=== PATIENT | female | born 1935 | race Caucasian/White ===

== ENCOUNTER 2018-08-12 10:42 | Inpatient (IN) | payer MEDICARE, OTHER ==
[~2018-08-12] VITALS: Ht 162.6 cm; Wt 44.6 kg
[~2018-08-12 10:42] MED LIST: ASPIR 8181 MG PO; AZITHROMYCIN500 MG PO; BACITRACIN1 PKT TOP; CALCIUM600 MG PO; CARVEDILOL12.5 MG PO; CHLORTHALIDONE25 MG PO; ESCITALOPRAM OX10 MG PO; I-CAPS WITH LU1 EACH PO; LEVAQUIN500 MG PO; LEXAPRO20 MG PO; LISINOPRIL20 MG PO; MULTIVITAMINS1 EAC7 PO; NICORETTE4 M1 BUCCAL; NICOTINE PATCH1 EAC1 TD; NORCO 10-325 T1 EACH PO; NORCO 5-325 TA1 EACH PO; ONDANSETRON ODT4 MG SL; PANTOPRAZOLE SO40 MG PO; PREDNISONE10 MG PO; PROMETHAZINE HC25 M1 PO; TAMOXIFEN CITRA10 MG PO; TAMOXIFEN CITRA20 MG PO; TRAZODONE HCL50 MG PO; VITAMIN D32000 UNIT PO
--- NOTE | 2018-08-12 15:22 | NUR ---
PATIENT ADMITTED TO ROOM 111 FROM THE ER. REPORT RECEIVED FROM ER NURSE THONG. VITALS TAKEN UPON ARRIVAL AND PATIENT REMAINS ALERT AND ORIENTED AT THIS TIME. DOCTOR ABELARDO CALLED AND NOTIFIED OF ELEVATED LACTIC ACID LEVEL 3.3 AND ASSESSMENT DONE. SON IN THE ROOM TO HELP WITH QUESTIONS. PATIENT ORIENTED TO THE FLOOR.
--- NOTE | 2018-08-12 15:41 | NUR ---
NG TUBE PLACED AT THIS TIME, XRAY CALLED TO VERIFY PLACEMENT.
--- NOTE | 2018-08-12 15:58 | NUR ---
XRAY DONE TO VERIFY PLACEMENT OF NG TUBE, NG TO SUCTION AT THIS TIME.
[2018-08-12] MEDS ORDERED: LISINOPRIL10 MG PO (16:29)
[2018-08-12] MEDS ORDERED: NORCO 5-325 TA1 EACH PO (16:31)
[2018-08-12] MEDS ORDERED: FERROUS SULFAT325 MG PO (16:32)
--- NOTE | 2018-08-12 18:03 | NUR ---
PATIENT STAND BY ASSIST UP TO THE BATHROOM, VOIDED CLEAR YELLOW URINE MISSING THE HAT. PATIENT IS FAIRLY STEADY ON HER FEET AND REQUIRED ONLY ASSISTANCE WITH HER IV POLE. I AND O COMPLETE AND NEW BAG OF IV FLUIDS HUNG.
--- NOTE | 2018-08-12 18:22 | NUR ---
THIS PATIENT WAS ADMITTED TO THE FLOOR AFTER COMING TO THE ER FOR NAUSEA FOR THE PAST 24 HOURS. AN NG TUBE WAS PLACED AND BROWN COLORED BILE WAS EMPTIED FROM THE NG TUBE. PATIENT IS ALERT AND ORIENTED AT THIS TIME AND IS STEADY ON HER FEET. PATIENTS LACTIC ACID LEVEL WAS ELEVATED AT 3.3 AND WILL BE RECHECKED IN THE AM.
--- NOTE | 2018-08-12 18:39 | NUR ---
PATIENT'S HR IS ELEVATED AT 130'S PER TELEMETRY, DOCTOR ABELARDO CALLED AND BOLUS OF LR 500MLS STARTED AT THIS TIME. SCD'S REMAIN ON AND HOB ELEVATED PER DOCTOR REQUEST
--- NOTE | 2018-08-12 19:10 | NUR ---
CHARGE NURSE REPORT RECEIVED FROM SALOME. WILL IN BED, VISITING WITH A MALE VISITOR.
--- NOTE | 2018-08-12 22:00 | NUR ---
PT ASSESSMENT COMPLETE. PT REPORTS PAIN TO RLQ. PRN DILAUDID ADMINISTERED. PT WITH A BRIEF EPISODE OF NAUSEA, STATES THAT IT PASSED QUICKLY. PT DENIES SOB. NG TUBE IN PLACE TO LIWS, BROWN DRAINAGE PRESENT IN CANISTER. BT'S ACTIVE. PT CONTINUES TO DRINK ICE WATER. STATES THAT HER THROAT IS IRRITATED. PT ASSISTED TO THE BATHROOM WITH SBA AND BACK TO BED. PT TOLERATED WELL. PT DENIES FURTHER NEEDS AT THIS TIME. CALL LIGHT WITHIN REACH. ROOM IN VIEW OF RN STATION.
--- NOTE | 2018-08-13 01:39 | NUR ---
PT RESTING IN BED WITH EYES CLOSED, WAKES EASILY TO NAME. PT ASSESSMENT COMPLETE. PT DENIES PAIN, NAUSEA, OR SOB. BT'S ACTIVE. PT CONTINUES TO REPORT TENDERNESS UPON ABD PALPATION, ESPECIALLY TO RLQ. NG TUBE TO LIWS WITH BROWN DRAINAGE. PT DENIES NEEDS AT THIS TIME. CALL LIGHT IN REACH, ROOM IN VIEW OF RN STATION.
--- NOTE | 2018-08-13 03:12 | NUR ---
PT ASSISTED TO THE BATHROOM AND BACK TO BED WITH 1 PA. PT BECOMES NAUSEATED UPON SITTING UP. STATES THAT IT PASSES QUICKLY. PT DENIES FURTHER NEEDS. CALL LIGHT WITHIN REACH. ROOM IN VIEW OF RN STATION.
--- NOTE | 2018-08-13 05:46 | NUR ---
PT ASSESSMENT COMPLETE. PT STATES PAIN WELL CONTROLLED. REPORTS OCCASIONAL NAUSEA, DENIES SOB. PT STATES SHE IS "NOT FEELING SPUNKY" THIS MORNING. BT'S ACTIVE. ABD TENDER TO PALPATION, ALOK TO RLQ. NG TUBE TO LIWS, MINIMAL DRAINAGE IN THE LAST 4 HOURS. SMALL AMOUNT OF CLEAR DRAINAGE IN NG TUBING. PT DENIES FURTHER NEEDS AT THIS TIME. CALL LIGHT WITHIN REACH.
--- NOTE | 2018-08-13 05:51 | NUR ---
PT SLEPT OFF AND ON THIS SHIFT. DILAUDID X 1 FOR PAIN AND SLEEP. PT ALERT AND ORIENTED. NG TUBE TO LIWS WITH ~ 600ML DRAINAGE THIS SHIFT, SLOWING DOWN THIS AM. RLQ TENDER TO PALPATION. NAUSEA OFF AND ON THROUGHOUT THE NIGHT, PT STATES NAUSEA WORSE WHEN SHE SITS UP. 1 PA. D5LR @ 125. UO QS.
--- NOTE | 2018-08-13 08:04 | NUR ---
PT AWAKE, ALERT AND ORIENTED X3. PT RECEIVED MORPHINE IVP FOR REPORTS OF PAIN A SHORT TIME AGO; PAIN IMPROVED AT THIS TIME. PT DENIES NEED TO VOID. PERSONA SUPPLIES AND CALL LIGHT WITHIN REACH.
--- NOTE | 2018-08-13 08:24 | NUR ---
PATIENT IN BED RESTING. FRESH WATER GIVEN. CALL LIGHT IN REACH. NO FURTHER NEEDS AT THIS TIME.
--- NOTE | 2018-08-13 09:06 | HP ---
[facility] [address], [place] [address] Signed ADMISSION DATE: 08/12/2018 REASON FOR ADMISSION: Small bowel obstruction, dilated gallbladder. HISTORY OF PRESENT ILLNESS: This 82-year-old white woman is well known to me from the past. I have treated her breast cancer number of years ago. She is an impressive and relentless smoker of cigarettes, previously two packs a day, now down to merely 1/2 pack of cigarettes a day. She has a long-standing history of vasculopathy including an impressive thoracic aortic aneurysm with a saccular configuration, history of fem-fem bypass and wound healing issues following surgery in the past. She presents to the emergency room today where she was evaluated by Dr. Colón with diffuse abdominal pain and bloating. A CT scan was performed confirming small-bowel obstruction. Notably, she has had a small bowel resection in the distant past by Dr. Shankar Ramirez for Crohn's disease. She has been careful in her dietary habits to avoid large boluses of fiber so as to avoid obstructive problems. She is admitted for further evaluation and care on the basis of her small bowel obstruction. It is notable that her white count is elevated to 17.6 and a lactic acid level is 3.3. Notably, her troponin is less than 0.01. Review of her medical record shows that she was admitted in November of 2016 with chief complaint of nausea and vomiting. At that time, found to have an avulsion fracture of the left greater trochanter. PAST MEDICAL HISTORY: Her underlying medical issues include hypertension, COPD, chronic respiratory failure with hypoxia, history of thoracic aortic aneurysm, history of antral ulcer of stomach, presented with blood loss anemia in February of [address] Mooney, as well as Crohn's disease with history of right-sided colectomy. She has history of breast cancer and bilateral mastectomy. History of left parotidectomy and mood disorder. SOCIAL HISTORY: She has two adult sons in the [facility] and a daughter in [place], [place]. Electronically Signed By: DOMI ZHOU MD 08/13/18 0906 PATIENT NAME: YNES VELASQUEZ HISTORY AND PHYSICAL DATE OF : 35 REPORT #: [id number] PHYSICIAN: DOMI ZHOU MD PCP: NATALIYA MG MD REPORT IS CONFIDENTIAL AND NOT TO BE RELEASED WITHOUT AUTHORIZATION [facility] [address], [place] [address] Signed She is a . Her of smoking-related causes. ALLERGIES: She has allergies to penicillin and sulfa medication. MEDICATIONS: At admission include iron sulfate tablets 325 mg p.o. daily, [place] 5/325 as needed for pain, lisinopril 10 mg p.o. b.i.d., a multivitamin, and trazodone 1 p.o. at bedtime. She also takes calcium supplement, vitamin D3, and a proprietary antioxidant, omega-3 preparation. She also takes a multivitamin daily. REVIEW OF SYSTEMS: She denies any shortness of breath or chest pain at this time. She has no significant abdominal pain currently. PHYSICAL EXAMINATION: GENERAL: She is alert and oriented. Does not look toxic surprisingly. HEENT: Trachea is midline. She has no tachypnea. She has several missing teeth. CHEST: Shows diminished breath sounds bilaterally. HEART: Appears regular. ABDOMEN: Without muscle tone. There was abdominal distention, but no tenderness. Note is made of a fem-fem bypass graft, which is far higher than a typical position, indeed [facility] between the pubic symphysis and the umbilicus itself. There is a long midline incision. There is no sign of hernia. EXTREMITIES: Show clubbing of the fingernails. LABORATORY STUDIES: Show white count of 17.6, hematocrit 46, platelets 549,000. Chem profile is reasonably normal. Bicarb is 22, creatinine 1.77, glucose 133, lactic acid 3.3 as mentioned, bilirubin 0.5, troponin 0.01, globulin 4.0, albumin 44.3. She is negative for type A influenza. CT scan is reviewed in detail. Additionally, her chest x-ray is reviewed, which shows no evidence of infiltrate. Nasogastric tube was placed, which shows good decompression of the stomach. It is in good position. A CT scan was reviewed showing difficulty in determining transition point for bowel obstruction. There are benny noted in the low pelvis related to prior bowel resection. There is apparent prior right colectomy. There is a large calcific lesion in the right mid abdomen, not consistent with gallstone, ileus appearance that I can tell. Reviewed these films with radiologist, Dr. Díaz. There are dilated loops of small bowel, most dominantly in the pelvis. The liver appears normal. The gallbladder is markedly distended, but not inflamed particularly. There are no stones that I can see. The thoracic aorta has an impressive saccular type aneurysm at the arch and distalward as well. A femoral-femoral bypass graft is noted on the CT scan and well positioned. Electronically Signed By: DOMI ZHOU MD 08/13/18 0906 PATIENT NAME: YNES VELASQUEZ HISTORY AND PHYSICAL DATE OF : 35 REPORT #: [id number] PHYSICIAN: DOMI ZHOU MD PCP: NATALIYA MG MD REPORT IS CONFIDENTIAL AND NOT TO BE RELEASED WITHOUT AUTHORIZATION [facility] [address] [facility] [place] [place] [address] Signed ASSESSMENT: The patient has appearance of small bowel obstruction and elevated white count and elevated lactate level. Her clinical appearance is far better than her numbers would reveal. She is known to have very advanced chronic obstructive pulmonary disease and vasculopathy, no doubt in part related to her smoking history. With her prior history of Crohn's disease and prior laparotomies and partial enteric resections, the possibility of adhesion or adhesion-related obstruction is most likely. Continued IV fluids would be appropriate. Monitoring of her lactic acid levels for response resuscitation is appropriate. We are hopeful that she will not require an operative intervention, but if operation is undertaken, then cholecystectomy would be additionally performed given its dilated appearance. It is unlikely that she has acute cholecystitis and secondary ileus, but the gallbladder clearly is quite abnormal at least from its perspective of being dilated. I have discussed all this with the patient who clearly understands. Her sons have come and gone today and visiting. We will allow some liquids for comfort as she requests. MD CITLALI Medley/ALFRED /[id number] cc: Nataliya Mg MD Copies: NATALIYA MG MD ~ Electronically Signed By: DOMI ZHOU MD 08/13/18 0906 PATIENT NAME: YNES VELASQUEZ HISTORY AND PHYSICAL DATE OF : 35 REPORT #: [id number] PHYSICIAN: DOMI ZHOU MD PCP: NATALIYA MG MD REPORT IS CONFIDENTIAL AND NOT TO BE RELEASED WITHOUT AUTHORIZATION
--- NOTE | 2018-08-13 10:05 | NUR ---
PATIENT IN BED RESTING WITH EYES CLOSED. CALL LIGHT IN REACH. NO FURTHER NEEDS AT THIS TIME.
--- NOTE | 2018-08-13 11:36 | NUR ---
PT RESTING IN BED. PT REMAINS ON RA, RESP EVEN ADN NON LABORED. NG TO RIGHT NARES. LIS.; TUBE IS PATENT AND DRAIN APPROP. PERSONAL SUPPLIES WITHIN REACH OF PT. NO NEEDS AT THIS TIME.
--- NOTE | 2018-08-13 12:18 | NUR ---
ATTEMPTED TO GET PT OUT OF BED FOR A SMALL WALK. PT VERBALIZED SHE IS NOT FEELING "WELL ENOUGH" AT THIS TIME TO DO THIS. ENCOURGED PT TO CALL STAFF IS OR WHEN SHE FEELS WELL ENOUGH TO WALK. PT TOLERATING AMBULATION TO BR AND BACK TO BED FAIR. PT STATES SHE GETS A BIT NAUSEATED WITH POSITION CHANGES.
--- NOTE | 2018-08-13 13:17 | NUR ---
PATIENT IN BED RESTING WITH EYES CLOSED. CALL LIGHT IN REACH. NO FURTHER NEEDS AT THIS TIME.
--- NOTE | 2018-08-13 13:38 | EKG ---
[facility] [address] [facility] [place], [place] [address] Signed Sinus tachycardia Biatrial enlargement Abnormal ECG When compared with ECG of 08-MAR-2018 00:09, T wave inversion no longer evident in Anterior leads Confirmed by BRENDA KING DO ([id number]) on 08/13/2018 1:38:28 PM Electronically Signed By: BRENDA KING DO 08/13/18 1338 PATIENT NAME: YNES VELASQUEZ THAD Electrocardiogram DATE OF : 35 PHYSICIAN: BRENDA KING DO REPORT #: [id number] REPORT IS CONFIDENTIAL AND NOT TO BE RELEASED WITHOUT AUTHORIZATION
--- NOTE | 2018-08-13 15:57 | NUR ---
PT ASSISTED TO BATHROOM SBA. NGT TO LIWS. PT REQUESTING THROAT LOZENGE, PROVIDED. PT DENIES OTHER NEEDS AT THIS TIME.
--- NOTE | 2018-08-13 17:24 | NUR ---
PATIENT IN BED WATCHING TV. BP HIGH, RN NOTIFIED. CALL LIGHT IN REACH. NO FURTHER NEEDS AT THIS TIME.
--- NOTE | 2018-08-13 17:45 | NUR ---
DR. ZHOU NOTIFIED REGARDING ELEVATED BP AND NEW ONSET OF SUSTAINED ELEVATED HEART RATE IN 120/130'S AT REST.
--- NOTE | 2018-08-13 18:17 | NUR ---
PT ON 2L OXYGEN. INTERMITTENT ABD PAIN AND NAUSEA. DECLINED MEDICATION FOR THIS. NG LIS. 1PA STANDBY TO BR. SIPS WATER AND ICE CHIPS FOR COMFORT. HEART RATE NST 120/130'S DR. ZHOU AWARE; PT ASYMPTOMATIC.
--- NOTE | 2018-08-13 18:59 | NUR ---
DR. JOHN AWARE OF CONSULT REQUESTED BY DR. ZHOU. ORDER PLACED.
--- NOTE | 2018-08-13 19:01 | NUR ---
RECEIVED REPORT FROM CELINE ESCALERA. WHITEBOARD UPDATED. NO REQUESTS AT THIS TIME.
--- NOTE | 2018-08-13 19:05 | NUR ---
CHARGE NURSE REPORT RECEIVED, PT IN BED AT THIS TIME.
--- NOTE | 2018-08-13 20:32 | NUR ---
ASSESSMENT AND MEDICATIONS DUE. ASSESSMENT DONE. AMBULATED TO TOILET. REPORTED NAUSEA, NO EMESIS. NG TUBE ON LIS. DENIES PAIN. MEDICATIONS GIVEN (SEE MAR).
--- NOTE | 2018-08-14 00:02 | NUR ---
MEDICATIONS DUE. BP 192/85 (108), REPEATED MANUALY WITH SAME RESULTS. METOPROLOL GIVEN (SEE MAR). MAGNESIUM INFUSING (SEE MAR).
--- NOTE | 2018-08-14 00:20 | NUR ---
BLOOD PRESSURE REPEATED 168/102. PULSE OF 82. pt RESTING.
--- NOTE | 2018-08-14 00:22 | NUR ---
V/S AND I&O DONE AND CHARTED. NO OTHER NEEDS AT THIS TIME. CALL LIGHT AND BEDSIDE TABLE IN REACH.
--- NOTE | 2018-08-14 02:00 | NUR ---
ASSESSMENT DONE. NO CHANGES FROM PRIOR ASSESSMENT. CALL LIGHT WITHIN REACH.
--- NOTE | 2018-08-14 05:39 | NUR ---
MEDICATION DUE. pt ALERT AND AWAKE. VSS. MEDICATION GIVEN (SEE MAR). NEW CANISTER FOR NG TUBE. AMBULATED TO TOILET AND BACK. REFUSED SCDS AT THIS TIME. CALL LIGHT WITHIN REACH.
--- NOTE | 2018-08-14 06:21 | NUR ---
pt SLEPT ON AND OFF. BP HIGH, IV MEDS GIVEN (SEE MAR). BP IMPROVED. NG TUBE TO LIS. TELE 9. SBA. IV ABX, IVF INFUSING. ON 2 L O2 VIA NC. SIPS WATER AND ICE CHIPS FOR COMFORT. DR JOHN CONSULTING. USES CALL LIGHT APPROPRIATELY.
--- NOTE | 2018-08-14 07:00 | NUR ---
Pt alert and oriented to person, place, time. Pt sitting up in bed. Pt responds to questions and answers appropriately. Pt in good spirits evidenced by humor stating "i have the cute nurse today, things are looking up". Call light in reach. Pt stated no further needs at this time.
--- NOTE | 2018-08-14 09:00 | NUR ---
PT A&OX3. NG TO LIS TO RIGHT NARE. NG PATENT, LIGHT BROWN OUTPUT NOTED IN CANISTER. PT REPORTS BRIEF EPISODES OF INTERMITTENT NAUSEA AND RLQ ABD PAIN. PT DECLINING NAUSEA AND PAIN MEDICATION. PERSONAL SUPPLIES AND CALL LIGHT WITHIN REACH. NO NEEDS AT THIS TIME.
--- NOTE | 2018-08-14 09:20 | NUR ---
NG tube securement device loose at this time. Mastisol liquid adhesive applied to nose to secure suction tube attachment device. NG tube then marked with blue sharpy at inlet of the nose for visualization of placement.
--- NOTE | 2018-08-14 09:25 | NUR ---
Pt ambulated to the bathroom. Gait steady. Stand by assist with SN. Pt returned to bed and complains of nausea. After one minute of laying in bed, pt states she no longer feels nauseated. Call light left in reach. Pt states no further needs at this time. Son in room with pt at this time.
--- NOTE | 2018-08-14 10:52 | NUR ---
PATIENT SEEN FROM NURSES STATION STANDING AT BEDSIDE TRYING TO UNTANGLE IV, TELE, AND NG TUBES AND CORDS. THIS CHAIN TESTING MACHINE OPERATOR ASSISTED PATIENT TO SIT BACK IN BED AND LAY BACK DOWN. PATIENT BELONGINGS ON BEDSIDE TABLE. CALL LIGHT IN REACH, PATIENT ENCOURAGED TO CALL WHEN NEEDING HELP. PATIENT STATES SHE WAS "TRYING TO CLOSE THE CURTAIN". BED ALARM ON. PATIENT VISIBLE FROM NURSES STATION.
--- NOTE | 2018-08-14 11:00 | NUR ---
New suction tube attachment device was placed on pt's nose and attached to NG tube. Pt stated no pain. Pt tolerated well. No further concerns at this time. Visitor in room with pt.
--- NOTE | 2018-08-14 14:50 | NUR ---
TALKED TO DR ZHOU REGARDING INCREASED BP. HE ORDERED 5MG IV LABATOLOL ONCE.
--- NOTE | 2018-08-14 15:55 | NUR ---
PT IS VERY ADAMATE THAT SHE WILL NOT GO TO A SNF, HAVE HOME HEALTH COME TO HER HOUSE, OR GO TO OP PT AND/OR OT. PT REFUSING ALL AND ANY OF THESE, WE DISCUSSED HOW DECONDITIONED SHE CAN BECOME MAKING IT UNSAFE FOR HER TO GO HOME AND SHE STATES THAT HER DAUGHTER THAT LIVES IN [place] WILL COME AND CARE FOR HER IF NEED BE.
--- NOTE | 2018-08-14 16:35 | NUR ---
CALLED DR ZHOU FOR PT DRY HEAVING. STILL HAS ONE MORE IMAGE TO GO ON SMALL BOWEL FOLLOW THROUGH. HE ORDERED 12.5 MG PHENEGREN [id number]
--- NOTE | 2018-08-14 16:49 | NUR ---
Pt in bed nauseated. Admin phenergan 12.5mg IVP via pump. Pt remains on 2l oxygen pers nc, sat level 95%. Family in room visiting. Personal supplies and call light within reach. No needs at this time.
--- NOTE | 2018-08-14 17:21 | NUR ---
BLOOD PRESSURE CONTINUES TO BE ELVEVATED; DR. JOHN AWARE; NEW ORDER FOR VASOTEC 0.625MG IVP ADMIN PER DOC ORDER. PT NAUSEA SUBSIDING; WAS GIVEN PHENERGAN A SHORT TIME AGO FOR THIS. PENDING DI RESULTS FOR BOWEL STUDY; PER DI REQUEST LEAVE NG CLAMPED UNTIL THEY NOTIFY US TO HOOK IT BACK TO SUCTION. PT'S NG CLAMPED AT THIS TIME. PT REPORTS STOMACH PAIN IS IMPROVED AT THIS TIME. PERSONAL SUPPLIES AND CALL LIGHT WITHIN REACH OF PT. BED ALARM INTACT. PT REMAINS ON 2 L OXYGEN, 02 SAT LEVEL OF 93%. PT CLOSE TO RN STATION FOR FREQUENT MONITORING. CALL LIGHT WIHIN REACH.
--- NOTE | 2018-08-14 18:23 | NUR ---
PT CONFUSED. NG TO RIGHT NARE; LIS. HYPOACTIVE BT, LBM 08/11/18. BOWEL STUDY IN PROGRESS. 2L OXYGEN NC, SAT LEVEL MID 90'S. 1-2P ASSIST TO BR. D5LR@125 WITH ONE TIME BOLUS OF KCL HANGING. BED ALARM INTACT.
--- NOTE | 2018-08-14 20:15 | NUR ---
MEDICATION DUE. pt IN SUPINE POSITION, WATCHING TV. BED ALARM ON. BP TAKEN. MEDICATION GIVEN BP REPEATED. (SEE MAR). NO REQUESTS FROM pt.
--- NOTE | 2018-08-14 21:14 | NUR ---
ASSESSMENT AND MEDICATIONS DUE. pt ORIENTED TO PERSON AND DATE BUT NOT TO PLACE. STATED "I'M AT HOME". ASSESSMENT DONE. MEDICATIONS GIVEN (SEE MAR). BED ALARM ON. DOOR AND CURTAIN OPEN TO NURSES STATION.
--- NOTE | 2018-08-14 21:59 | NUR ---
PT TRYING TO USE THE TELEBOX TO GET HELP. ASSISTED UP TO THE BATHROOM, UNSTEADY ON FEET, REQUIRED STEADING. BACK TO BED, NG TO LIS, IV INFUSING, OXYGEN IN PLACE, AND CALL LIGHT WITHIN REACH.
--- NOTE | 2018-08-15 00:52 | NUR ---
ROUNDED ON pt. RESTING WITH EYES CLOSED, RESPIRATIONS REGULAR, RATE = 18. HR 70. CALL LIGHT WITHIN REACH. BED ALARM ON.
--- NOTE | 2018-08-15 02:36 | NUR ---
MEDICATIONS DUE. FOUND pt WITH NG TUBE OUT. BLOOD PRESSURE TAKEN. MEDICATIONS ADMINISTERED (SEE MAR). pt ALERT AND ORIENTED. WHEN ASKED ABOUT THE NG TUBE STATED "IT'S GONE THANK GOODNESS". CURTAIN OPEN TO THE NURSES STATION. BED ALARM ON.
--- NOTE | 2018-08-15 02:49 | NUR ---
CALLED DR. ZHOU WHO REQUESTED A NEW TUBE A PLACED, AND XRAY BE USED TO VERIFY PLACEMENT. ORDERS ENTERED. NEW NG TUBE PLACED WITH HELP FROM CELINE AJ. pt VOMITTED DURING PLACEMENT. XRAY CALLED TO VERIFY PLACEMENT. XRAY DONE. WARM BLANKETS PROVIDED. CURTAIN AND DOOR OPEN TO THE NURSES STATION. pt RESTING.
--- NOTE | 2018-08-15 04:23 | NUR ---
RADIOLOGY REPORT RECEIVED, NG PLACED APPROPRIATELY. ATTACHED TO SUCTION LOW INTERMITTENT. 2L O2 VIA NC. HOB 45 DEGREES. NO REQUESTS AT THIS TIME. BED ALARM ON. CURTAIN OPEN TO NURSES STATION.
--- NOTE | 2018-08-15 05:21 | NUR ---
pt CONFUSED AT VARIOUS PROBLEMS, ORIENTED TO SELF AND SITUATION. PULLED NG TUBE, NEW TUBE PLACED. BP CONTROLLED WITH IV MEDS. IVF INFUSING. BED ALARM ON. TELE 9.
--- NOTE | 2018-08-15 07:58 | NUR ---
PATIENT SITTING UP IN BED. PATIENT FACE AND HANDS CLEANED. CALL LIGHT WITHIN REACH. NO OTHER NEEDS AT THIS TIME
--- NOTE | 2018-08-15 08:00 | NUR ---
RECEIVED REPORT AT 0700, FOUND PT AWAKE IN BED WITH SON AT BEDSIDE. PT HAD NO NEEDS OR CONCERNS AT THAT TIME.
--- NOTE | 2018-08-15 10:00 | NUR ---
BP IS INCREASED SOME AT THIS TIME. MORNING BP MEDS HAVE BEEN GIVEN. BLACK IS CLEAR, LLL IS DIMINISHED. ALL RIGHT LOBES ARE DIMINISHED. ABD SOUNDS ARE PRESENT WITH NO DISTENTION NOTED BY PT. FEMORAL BYPASS IS WDL. PT DENIES PAIN. NG TUBE AT L/I/S, FLUSHED WITH 30ML OF TAP WATER. 200ML OUT OF NG TUBE BETWEEN 3129-4415. PT WALKED IN HALLWAY WITH PHYS. THERAPY. NO NEW IMMEDIATE CONCERNS NOTED SO FAR.
--- NOTE | 2018-08-15 10:10 | NUR ---
PATIENT RESTING IN BED. VITAL SIGNS AND I&O DONE. PATIENT DID NOT VOID DURING THIS PERIOD EVEN WHEN SHE WAS ENCOURAGED TO USE THE TOILET. RN NOTIFIED. CALL LIGHT WITHIN REACH. BED ALARM ON. NO OTHER NEEDS AT THIS TIME.
--- NOTE | 2018-08-15 11:32 | NUR ---
PATIENT IN BED. PATIENT'S BODY CLEANED WITH SURGICAL WIPES BEFORE SURGERY. CALL LIGHT WITHIN REACH. BED ALARM ON. NO OTHER NEEDS AT THIS TIME.
--- NOTE | 2018-08-15 12:00 | NUR ---
PT IS READY FOR OR. NO NEW CONCERNS NOTED AT THIS TIME.
--- NOTE | 2018-08-15 13:42 | NUR ---
PATIENT IN BED WATCHING TV. VITAL SIGNS AND I&O DONE. CALL LIGHT WITHIN REACH. NO OTHER NEEDS AT THIS TIME
--- NOTE | 2018-08-15 14:00 | NUR ---
PT IS STILL WAITING FOR OR. NO NEW CONCERNS NOTED SO FAR.
--- NOTE | 2018-08-15 15:00 | NUR ---
PT JUST PULLED HER NG TUBE OUT. MD ZHOU WAS CALLED BUT I WAS NOT ABLE TO REACH HIM.
--- NOTE | 2018-08-15 15:20 | NUR ---
OR CREW ON THE WAY. MD ZHOU IS AWARE THAT PT PULLED HER NG TUBE. NO ORDERS WERE GIVEN. PT TO GO TO ROOM 129 AFTER SX.
--- NOTE | 2018-08-15 22:30 | NUR ---
08/15/182229 JuanAgnes Pola 2158: PT ARRIVES TO CCU RM 129 AWAKE, BUT DISORIENTED. PT ON 6L O2 VIA MASK, SATS 100%. RESP EVEN AND UNLABORED. PT MOVES AROUND IN BED FREQUENTLY, GRASPING ANTHING IN REACH. TWO RN'S HOLD PT'S HAND TO OBTAIN VS. 2200: SCD'S APPLIED TO PT. PT CONT TO ASK FOR FAMILY MEMBERS AND IS UNABLE TO ANSWER PAIN QUESTIONS. PT CONT TO SAT 100% ON 6L O2 VIA MASK WITH EVEN AND UNLABORED RESP.
--- NOTE | 2018-08-15 22:50 | NUR ---
PATIENT TO ROOM 129 FROM OR. RECEIVED REPORT FROM BRUSH OR BROOM CUTTER CHRISTIE AND RN DARREN. PATIENT IS RESTFUL WITH EYES CLOSED, BREATHING IS EVEN AND UNLABORED, VITALS WNL, SPOS 98% ON ROOM AIR, FLACC SCORE OF 0. ABD DRESSINGS INTACT, LEXI DRAIN PUTTING OUT SANGUINOUS FLUID, DR. ZHOU IS AWARE, DOES NOT WISH TO BE NOTIFIED REGARDING LEXI OUTPUT OVER NIGHT. G TUBE PRESENT DRAIN TO GRAVITY, NO OUTPUT NOTED. THIS RN REMAINS AT BEDSIDE.
--- NOTE | 2018-08-16 00:39 | NUR ---
PATIENT REPORTS NAUSEA, PRN PROMETHAZINE GIVEN. IV SITE PATENT, FLUSHING WELL. PATIENT DENIES FURTHER NEEDS. FLACC SCORE OF 0. RESTFUL, RASS SCORE -1. LEXI DRAIN CONTINUING TO DRAIN SANGUINOUS FLUID, NO OUTPUT FROM G TUBE. BREATHING IS EVEN AND UNLABORED, VITALS WNL. CALL LIGHT WITHIN REACH.
--- NOTE | 2018-08-16 01:00 | NUR ---
DR. JOHN TO BEDSIDE TO EVALUATE PATIENT. UPDATED HIM REGARDING PATIENT'S CONDITION, VITALS WNL, NOTIFIED HIM THAT AFTER LABETALOL ADMINISTRATION, PATIENT'S BLOOD PRESSURE WAS DOWN TO 116/50 (62). ENALAPRILAT WAS HELD AND DC'D. NO OTHER ORDERS AT THIS TIME.
--- NOTE | 2018-08-16 03:09 | NUR ---
PATIENT IS RESTFUL WITH EYES CLOSED, BREATHING IS EVEN AND UNLABORED. O2 SATURATION IS 98% ON ROOM AIR. FLACC SCORE OF 0. LEXI DRAIN NOW HAS SEROSANGUINOUS OUTPUT. [place]O INTACT, DRAINING CONCENTRATED URINE, G TUBE HAS SMALL AMOUNT OF GREEN LIQUID AFTER SMALL AMOUNT OF PO INTAKE WHICH PATIENT TOLERATED WELL. CALL LIGHT WITHIN REACH.
--- NOTE | 2018-08-16 04:00 | NUR ---
PATIENT RESTFUL IN BED WITH EYES CLOSED, BREATHING IS EVEN AND UNLABORED, SPO2 99% ON ROOM AIR. PATIENT AWAKENS EASILY TO VOICE, DISORIENTED TO DATE, AWARE SHE IS IN HOSPITAL AND SITUATION. VITALS WNL, PERIPHERAL PULSES WELL FELT. GASTROSTOMY TUBE CONTINUES TO PUT OUT SMALL AMOUNTS OF GREEN LIQUID, LEXI HAS SEROSANGUINOUS OUTPUT, LESS OUTPUT THAN BEFORE NOTED (SEE I&O). DRESSINGS TO ABD REMAIN INTACT, BOWEL TONES ARE HYPOACTIVE, NO APPARENT DISTENTION. JARAMILLO INTACT, CONTINUES TO PUT OUT CONCENTRATED URINE. IVF INFUSING PER ORDER, IVs REMAIN INTACT. CALL LIGHT WITHIN REACH.
--- NOTE | 2018-08-16 06:00 | NUR ---
PATIENT IS RESTFUL IN BED WITH EYES CLOSED, BREATHING IS EVEN AND UNLABORED. VITALS WNL, IV LABETALOL HELD DUE TO DIASTOLIC OF 48 AND MAP OF 69. FLACC SCORE OF 0, RASS -1. CALL LIGHT WITHIN REACH.
--- NOTE | 2018-08-16 08:08 | NUR ---
Son in room with patient at 0745. Patient alert and oriented, responding to my questions well. patient laying in bed with HOB up at about 45 degrees.
--- NOTE | 2018-08-16 08:36 | NUR ---
LEFT FOREARM IV SL'ED, WAS NOT CHARTED ON START OF MY SHIFT. VERBAL REPORT FROM STAFFING RECRUITER STATES WAS PUT IN PLACE DURING TIME IN OR YESTERDAY.
--- NOTE | 2018-08-16 10:06 | NUR ---
DR ZHOU IN TO SEE PATIENT, WINDOW SHADES OPENED.
--- NOTE | 2018-08-16 10:09 | NUR ---
GRANDCHILDREN HERE TO VISIT. PATIENT STATES HAVING SOME MORE PAIN NOW IN HER ABD AREA, 09/15, PLAN TO GIVE HER SOME PAIN MEDICATIONS.
--- NOTE | 2018-08-16 10:34 | NUR ---
REMOVED SPO2 MONITOR FROM FOREHEAD AND PLACED ONE ON FINGER. READING WAS 85%, PATIENT TOOK SEVERAL DEEP BREATHES AND NOW IT IS READING 93%. GRANDCHILDREN LEAVING NOW. MORPHINE 2MG GIVEN
--- NOTE | 2018-08-16 11:11 | NUR ---
PATIENT UP TO CHAIR, BED BATH COMPLETED WITH HELP FROM PATIENT AND YUSUF BERGER. NEW LINENS APPLIED. ANOTHER SON NOW IN THE ROOM VISITING WITH PATIENT. CALL LIGHT IN REACH.
--- NOTE | 2018-08-16 12:21 | NUR ---
CONTINUES TO SIT UP IN CHAIR, HAS HAD HALF A CUP OF ICE CHIPS. G TUBE AND JARAMILLO BOTH EMPTIED. STATES PAIN STAYING ABOUT THE SAME AT 3/10 AND MOSTLY AT THE TUBE SITES.
--- NOTE | 2018-08-16 13:15 | NUR ---
THIS RN TAKING OVER PT CARE FOR THE REST OF DAY SHIFT. UPON ENTRANCE TO INTRODUCT MYSELF, PT IS UP IN CHAIR WITH FAMILY MEMBER AT HER SIDE. PT IS PLEASANT, CALM AND COOPERATIVE WITH NO C/O PAIN "UNLESS UP MOVING." PT DENIES ANY NEEDS AT THIS TIME. HER GTUBE IS DRAINING LIGHT GREEN/CLEAR OUTPUT TO GRAVITY; SMALL AMOUNT PRESENT IN BAG. RIGHT LEXI IS IN PLACE WNL; SMALL AMOUNT DRAINAGE IN BULB. JARAMILLO IN PLACE WITH BORDERLINE LOW UOP- WILL CONTINUE TO WATCH THIS I HAVE JUST ARRIVED. CALL LIGHT WITHIN REACH. FALL PRECAUTIONS IN PLACE. WILL CONTINUE TO MONITOR.
--- NOTE | 2018-08-16 14:25 | NUR ---
THIS RN AND A SECOND RN ASSISTED PT BACK TO HER BED PER HER REQUEST. SOME WEAKNESS ON HER FEET. PT STATED SOME DISCOMFORT WHILE MOVING BUT THIS DECREASED AFTER IN BED FOR A FEW MINUTES. SCD'S HAVE BEEN PLACED AND ARE ON. SHE DENIES ANY FURTHER NEEDS AT THIS TIME. CALL LIGHT WITHIN REACH. FALL PRECAUTIONS IN PLACE. WILL CONTINUE TO MONITOR.
--- NOTE | 2018-08-16 15:00 | NUR ---
PT RESTING IN BED WATCHING TV; IV ABX INITIATED. VERY PLEASANT, STATES SHE'S COMFORTABLE WITH NO REQUESTS. CALL LIGHT WITHIN REACH. FALL PRECAUTION IN PLACE. WILL CONTINUE TO MONITOR.
--- NOTE | 2018-08-16 16:08 | NUR ---
PT ASSESSMENT COMPLETED AT THIS TIME; PT RESTING IN BED WITH NO C/O PAIN, JUST SOME "SORENESS" AT HER GTUBE AND LEXI EXIT SITES. NO N/V. NO SOB. A/O X4/ ROOM AIR. CLEAR LUNGS OTHER THAN SMALL FINE CRACKLES IN RLL. DRSGS ON ABD ARE ALL C/D/I. LEXI LIGHT BROWN/SEROSANG SMALL OUTPUT. GTUBE TO GRAVITY WITH CLEAR/GREEN SMALL AMOUNT OUTPUT. JARAMILLO IN PLACE DRAINING CLEAR SARAH, BORELINE LOW UOP. PT ENCOURAGED TO COUGH AND DEEP BREATHE. SHE REMAINS NPO EXCEPT ICE CHIPS. HYPOACTIVE BOWEL SOUNDS THROUGHOUT. SCD ON AND IN PLACE. NO QUESTIONS OR CONCERNS. REMAINS VERY PLEASANT AND COOPERTIVE. CALL LIGHT WITHIN REACH. FALL PRECAUTIONS IN PLACE. WILL CONTINUE TO MONITOR.
--- NOTE | 2018-08-16 17:20 | NUR ---
PT RESTING IN BED WATCHING GAME SHOWS. SHE STATES THAT SHE'S COMFORTABLE AND DENIES ANY NEEDS TO BE MET AT THIS TIME. CALL LIGHT WITHIN REACH. WILL CONTINUE TO MONITOR.
--- NOTE | 2018-08-16 18:37 | NUR ---
PT RESTING IN BED WATCHING TV. SHE ASKS ABOUT FOOD AND DIET; EDUCATION GIVEN ON SBO/ABD SURGERIES AND ADVANCEMENT OF DIET TIMELINE. PT STATES HER UNSTANDING. CALL LIGHT WITHIN REACH. FALL PRECAUTIONS IN PLACE. WILL CONTINUE TO MONITOR.
--- NOTE | 2018-08-16 19:45 | NUR ---
IN TO CHECK ON PT, PT AWAKE IN BED. PLAN OF CARE DISCUSSED AND QUESTIONS ANSWERED. PT ENCOURAGED TO COUGH AND DEEP BREATH, IS ABLE TO GIVE SOME WEAK COUGHS.
--- NOTE | 2018-08-16 20:30 | NUR ---
IN TO DO ASSESSMENT, PT C/O 10/16 ABDOMINAL PAIN. WILL GIVE 2MG IV MORPHINE. LEXI DRAINING ON RIGHT SIDE OF ABDOMEN, SEROSANG FLUID AND G TUBE DRAIN TO JARAMILLO IS IN PLACE AND DRAINING GREENISH CLEAR FLUID. ABD DRESSING IS CDI, MILD DISTENTION TO ABDOMEN. BOWEL SOUNDS HEARD IN ALL FOUR QUADRANTS. PT DENIES NAUSEA. INCREASING HR NOTED, HR NOW 100-110. WILL GIVE MORPHINE AND REASSESS.
--- NOTE | 2018-08-16 20:30 | NUR ---
O2 SATS ARE 87% ON ROOM AIR, 2L/NC APPLIED AND SATS UP TO 90%.
--- NOTE | 2018-08-16 21:00 | NUR ---
2MG IV MORPHINE GIVEN FOR 4/10 ABDOMINAL PAIN.
--- NOTE | 2018-08-16 21:45 | NUR ---
PT CONT TO C/O PAIN, STATES SHE DOES NOT FEEL ANY PAIN RELIEF AND PAIN IS NOW UP TO 5/10. ADDITIONAL 2MG IV MORPHINE GIVEN.
--- NOTE | 2018-08-16 21:59 | NUR ---
PT STATES SHE STILL HAS NO PAIN RELIEF AFTER SECOND DOSE OF MORPHINE. WILL INFORM DR ZHOU.
--- NOTE | 2018-08-16 22:00 | NUR ---
DR ZHOU UPDATED ON PTS CONT PAIN, INCREASED HR AND REQUEST FOR HER REGULAR SLEEP AID. ORDERS GIVEN, WILL TRY TORADOL FOR PAIN AND GIVE TRAZADONE.
--- NOTE | 2018-08-16 23:00 | NUR ---
HR WENT FROM 100'S TO 80'S SHORTLY AFTER TORADOL GIVEN, AND PT APPEARS TO RESTING AND COMFORTABLE.
--- NOTE | 2018-08-17 00:42 | NUR ---
PT HAS BEEN LOOKING RESTFUL, IN TO DO ASSESSMENT. STATES PAIN IS GONE AFTER TORADOL BUT SHE IS STILL HAVING DIFFICULTY FALLING ASLEEP. DENIES NAUSEA, PAIN OR OTHER NEEDS, LIES BACK TO TRY TO SLEEP MORE. HR HAS BEEN IN THE 90'S RR 16. IV TYLENOL HUNG.
--- NOTE | 2018-08-17 03:30 | NUR ---
PT AWAKE IN BED, STATES SHE IS HAVING TROUBLE SLEEPING BUT STILL NOT HAVING PAIN. DENIES NAUSEA, ASSESSMENT DONE. LEXI IN PLACE DRAINING GREENISH CLEAR FLUID, GTUBE DRAIN TO JARAMILLO DRAINING WELL.
--- NOTE | 2018-08-17 06:15 | NUR ---
UP TO CHAIR, PT IN VIEW OF NURSES STATION. PT HAS NOT SLEPT MUCH LAST NIGHT, DENIES PAIN AT THIS TIME.
--- NOTE | 2018-08-17 07:53 | NUR ---
PT UP IN CHAIR WITH HER SON AT HER SIDE VISITING. PT IS VERY PLEASANT, CALM AND COOPERATIVE. SHE STATES SHE HAS NO PAIN RIGHT NOW. ONLY COMPLAINT IS THAT SHE FEELS SLEEPY, SAYING SHE "DIDN'T GET ANY SLEEP" LAST NIGHT. PT IS ANXIOUS TO ADVANCE HER DIET. WHEN I ASK, SHE STATES SHE HASN'T STARTED PASSING FLATUS OR BURPING YET. PT DENIES ANY NEEDS AT THIS TIME. CALL LIGHT WITHIN REACH. CALLS APPROPRIATELY. WILL CONTINUE TO MONITOR.
--- NOTE | 2018-08-17 08:26 | NUR ---
ASSISTED PT BACK TO BED AT THIS TIME PER HER REQUEST. ASSESSMENT COMPLETED. PT IS A/O X4 WITH SOME AGE RELATED FORGETFULNESS. SHE'S PLEASANT, CALM AND COOPERATIVE. SHE C/O DISCOMFORT AROUND HER RIGHT LEXI SITE WHILE TRANSFERING TO HER BED BUT IT SUBSIDED ONCE LAYING DOWN. ROOM AIR. PT STRONG ON HER FEET BUT SOME UNSTEADINESS. DRSGS ON HER ABD AROUND LEXI, GTUBE AND INCISION ARE ALL C/D/I. JARAMILLO IN PLACE DRAINING CLEAR, YELLOW ADEQUATE AMOUNT OF URINE- THIS HAS INCREASED SINCE YESTERDAY. RIGHT LEXI IS LIGHT GREEN OUTPUT, SMALL AMOUNT. GTUBE ON LEFT IS CLEAR, GREEN OUTPUT; SMALL AMOUNT TO GRAVITY. DENIES N/V. DENIES SOB. SCD PLACED ON HER LEGS AND ARE ON. SHE HAS NO QUESTIONS AT THIS TIME. PT'S OTHER SON HAS JUST ARRIVED AND VISITING PT AT THE BEDSIDE. CALL LIGHT WITHIN REACH. FALL PRECAUTIONS IN PLACE. WILL CONTINUE TO MONITOR.
--- NOTE | 2018-08-17 09:35 | NUR ---
THIS RN ASSISTED PT BACK UP TO THE RECLINER. SHE TOOK A SMALL NAP AND NOW WIDE AWAKE, ALERT, IN THE CHAIR, NO C/O PAIN. DRAINS AND JARAMILLO REMAIN WNL. VERY PLEASANT. NO QUESTIONS OR CONCERNS. FRESH CUP OF ICE PROVIDED. CALL LIGHT WITHIN REACH. FALL PRECAUTIONS IN PLACE. WILL CONTINUE TO MONITOR.
--- NOTE | 2018-08-17 11:30 | NUR ---
REINFORCED LEXI DRAIN TUBE WITH ADDITIONAL OP SITE PER . PT JAZMYN WELL. 50 ML GREEN CLOUDY FLUID EMPTIED FROM LEXI DRAIN. ORDERS GIVEN TO PROTECT LEXI DRAIN INTEGRETY.
--- NOTE | 2018-08-17 12:22 | NUR ---
THIS RN ENTERED ROOM FOR VS AND ASSESSMENT TO FIND PT HOLDING HER CALL LIGHT AND LOOKING AT IT IF SHE WASN'T SURE WHAT IT WAS. PT DISORIENTED TO SURROUNDINGS- SHE THINKS WE ARE IN HER LIVING ROOM. WHEN I ASKED HER AGAIN SHE THEN STATED WE WERE AT [facility]. THIS RN WAS PREPPING HER SCHEDULED MEDS, PT GRABBED HER FLUID TUBING AND PULLED HER RIGHT FOREARM IV OUT. PT REORIENTED TO ROOM, SITUATION AND CALL LIGHT. ALTHOUGH CONFUSED SHE IS CALM AND COOPERATIVE. FLUIDS AND MEDS SWITCHED OVER TO HER LEFT ARM PIV. SHE REMAINS UP IN THE RECLINER. REINFORCED FALL PREVENTION EDUCATION. ROOM AIR. CLEAR LUNG SOUNDS THROUGHOUT ALL LOBES. DRAINS REMAIN THE SAME THIS MORNING'S ASSESSMENT. SEE CHARTING.
--- NOTE | 2018-08-17 13:45 | NUR ---
WHEN PT TRANSITIONED FROM CHAIR TO BED, PT SAT AT BEDSIDE FOR APPROXIMATLY 5 MIN, PT NOT ABLE TO SIT UP STRAIGHT AND KEEP HER BALANCE WITHOUT HELP FROM NURSE.
--- NOTE | 2018-08-17 13:50 | NUR ---
PT APPEARS TO BE SLIGHTLY AGITATED AND CONFUSED. SHE IS PULLING AT HER LEXI DRAIN BULB, AND VARIOUS TUBES AND CORDS. PT ASSISTED TO BED WITH TWO PERSONS. PT VERY CONFUSED ABOUT WHERE SHE AND WHY SHE IS HERE. PT NOT ABLE TO REORIENT. PLACED ON 2L O2 SHE IS 87% ON ROOM AIR. PT IRRITABLE WITH HEALTHCARE STAFF. VITALS TAKEN, TEMP 98.0, HR 84, RESP RATE 19, BP 126/44 (63), O2 IS 91% WITH 2L O2 NASAL CANULA. 20 ML GREEN OPAQUE LIQUID DRAINED FROM LEXI DRAIN, TUBING STRIPPED.
--- NOTE | 2018-08-17 13:56 | NUR ---
BED ALARM IN PLACE.
--- NOTE | 2018-08-17 14:04 | NUR ---
DR. ZHOU NOTIFIED VIA PHONE AT THIS TIME OF PT'S INCREASED CONFUSION/CHANGES IN MENTATION, IRRITABILITY/TRYING TO GET OUT OF BED ON HER OWN, LOW GRADE FEVER OF 99.6, AND THE NEED FOR 2 L/MIN O2 VIA NC FOR MAINTAINING HER O2 >[address] ZHOU GAVE NO NEW ORDERS- STATED TO CONTINUE TO MONITOR.
--- NOTE | 2018-08-17 14:14 | OR ---
[facility] [address], [place] [address] Signed DATE OF OPERATION: 08/15/2018 SURGEON: Domi Zhou MD PREOPERATIVE DIAGNOSES: 1. Persistent complete small-bowel obstruction. 2. Severe underlying cardiopulmonary disease, pulmonary fibrosis, chronic obstructive pulmonary disease, ongoing smoking. 3. History of right colectomy and other laparotomies, history of Crohn disease. 4. Gallbladder dilation. POSTOPERATIVE DIAGNOSES: 1. Profound and extensive intraabdominal adhesions with complete small-bowel obstruction. 2. Subacute cholecystitis. PROCEDURES PERFORMED: 1. Laparotomy with extensive lysis of adhesions (2 hours). 2. Segmental small bowel resection with end-to-side enteroenterostomy, prolonged complicated, difficult. 3. Open cholecystectomy. 4. Placement of 24-Hungarian ABILIO decompressive gastrostomy tube. SECURITY SYSTEM ADMINISTRATOR: Nurse. ANESTHESIA: General endotracheal, Maria Guadalupe Julian CRNA. INDICATION: This 82-year-old white woman is known to me from the past having undergone mastectomy for breast cancer. She is a long-standing smoker and previously smoked two packs of cigarettes a day for many years, more recently half to one pack of cigarettes a day. She is admitted by me on August 12, 2018, with significant abdominal distention and bowel obstruction. 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 Electronically Signed By: DOMI ZHOU MD 08/17/18 1414 PATIENT NAME: YNES VELASQUEZ OPERATIVE REPORT DATE OF : 35 REPORT #: [id number] PHYSICIAN: DOMI ZHOU MD PCP: NATALIYA GANNON MD REPORT IS CONFIDENTIAL AND NOT TO BE RELEASED WITHOUT AUTHORIZATION [facility] [address], [place] [address] Signed Her evaluation had shown a high-grade bowel obstruction and at presentation she had elevated lactic acid level, elevated white count, and tenderness in the right lower abdomen. She was managed conservatively with fluid resuscitation, IV antibiotics, nasogastric tube decompression. Serial x-ray showed no real improvement of her bowel pattern and yesterday she underwent an urgent small-bowel follow-through. Prolonged imaging was undertaken showing no progress of contrast through the small bowel indicative of complete obstruction. Mindful of her numerous comorbidities, but with a little alternative at this point laparotomy has been offered anticipating remedy by whatever means is most appropriate. Additionally, a gastrostomy tube would be placed and probably cholecystectomy as her initial CT scan showed a massively dilated gallbladder as well. The patient and her two sons, Vega and Matheus, both understand the implications of operation at this point and wished to proceed as does the patient. FINDINGS: Notably the femoral-femoral bypass graft was midway between the umbilicus and the symphysis pubis much higher than typical. Obviously, this graft was respected and laparotomy to the symphysis pubis though preferable was not done and not able to be done on that basis. She had massive adhesions throughout the bowel loops and on the right side of the abdomen markedly distended and thinned out small bowel loops related presumably to adhesive obstruction. There is fusion of some of the loops such that possibility of prior effect of her Crohn disease causing an enteroenterostomy inflammation or even by surgical means may have been the underlying cause. Impressively dense adhesions in the low pelvis were noted to some normal bowel loops. Resection of at least 18 inches of small bowel was required to remedy the problem. An end-to-side hand-sewn enteroenterostomy was accomplished securing the proximal dilated viable bowel to distal decompressed bowel. A drain was placed in the pelvis. Additionally, the gallbladder was markedly inflamed and distended and it was excised as well. It had no stones. A decompressive gastrostomy was placed as well so as to avoid postoperative nasogastric tube use. DESCRIPTION OF PROCEDURE: The patient was brought to the operating room, given a general endotracheal anesthetic. A Ferguson catheter was placed. A nasogastric tube had previously been withdrawn by the patient immediately prior to operation. The abdomen was prepared with chlorhexidine solution and draped sterilely. The previous midline incision extended from below the mid epigastrium to the symphysis pubis, though a crossing femoral-femoral bypass graft was noted in this area was marked so as to avoid disruption of it. An incision was made Electronically Signed By: DOMI ZHOU MD 08/17/18 1414 PATIENT NAME: YNES VELASQUEZ OPERATIVE REPORT DATE OF : 35 REPORT #: [id number] PHYSICIAN: DOMI ZHOU MD PCP: NATALIYA GANNON MD REPORT IS CONFIDENTIAL AND NOT TO BE RELEASED WITHOUT AUTHORIZATION [address] [address] Signed in the cephalad aspect of the previous midline incision and dissection carried through the thin abdominal wall, ultimately entering the peritoneal cavity. The peritoneal cavity was free at least on the basis of the abdominal wall, but numerous filmy but extensive adhesions were noted between the bowel loops. Meticulous dissection with sharp technique was undertaken identifying and more easily clarifying the obstructive process, which was mostly centered in the right side of the abdomen. Markedly distended and thinned out small bowel loops were noted in that area. Stomach was identified as normal. The gallbladder was markedly distended and inflamed as well. Transverse colon was ultimately dissected free. Enterotomies were noted at least twice, which were rapidly secured with silk suture under temporary control approach. Extensive dissection was undertaken inferiorly and there was found to be dense adhesions of small bowel up to the pelvis and pelvic sidewall. Dissection was somewhat challenging in the low pelvis without the ability to extend the incision down to the pelvis itself due to the femoral-femoral graft, but it was accomplished safely. Enterotomies occurred in the pelvis as well, which required more full mobilization of those bowel loops. The right ureter was identified and unharmed. Ultimately, the bowel was dissected free from the pelvis with impressive amount of time and difficulty, but was able to be mobilized largely up into the upper abdomen. The bowel was then traced in its position upon freeing it from interloop adhesions. The area that was in the right side of the abdomen was the focus of obstruction, was quite dilated and very thinned out. The segment corresponding to the obstruction itself was defined more fully and it was deemed advisable to have resection be undertaken. Careful assessment of the viability of the bowel proximally and distally was undertaken. More than 2.5 hours had been required to lyse adhesions and mobilize the bowel for this assessment. The area in question of obstruction was quite dilated and bowel loop [id number] were essentially fused. Whether this was from the process of Crohn disease or actual decompressive enterostomies from the past is unknown. A segment of bowel proximally and distally from the affected segment was designated, marked, and the mesentery to it secured with hemostats and 2-0 silk ties. A CARIDAD stapling device was used to transect the distal portion and the proximal portion. Approximately 18 inches in total of small bowel was resected. It was opened on the back table and found to have no neoplasm or anything of that sort, but fusion of the naranjo internally were noted as well. Given the disparate size of more proximal bowel (dilated) and the distal bowel (decompressed), anastomotic technique was considered. Although a gmhm-[id number] anastomosis was possible, I did not want to more fully mobilize the more proximal bowel, which is in the left abdomen for fear of causing enterotomies or devascularizing it. On that basis, an end-to-side enteroenterostomy was deemed most appropriate. This was accomplished in a two-layer technique of interrupted 3-0 Vicryl in the inner layer and Electronically Signed By: DOMI ZHOU MD 08/17/18 1414 PATIENT NAME: YNES VELASQUEZ OPERATIVE REPORT DATE OF : 35 REPORT #: [id number] PHYSICIAN: DOMI ZHOU MD PCP: NATALIYA GANNON MD REPORT IS CONFIDENTIAL AND NOT TO BE RELEASED WITHOUT AUTHORIZATION [address] [address] Signed interrupted 3-0 silk suture in the outer layer. The mesenteric defect was secured with 3-0 silk suture. Irrigation was undertaken to clean up any residual spillage of GI contents which included thin barium and Gastrografin. Copious irrigation was undertaken with multiple liters. Through a right lower quadrant incision, a 10 mm flat Jeffrey drain was placed and manipulated into the pelvis. Once satisfied that contamination was cleaned up as much as it could be and the bowel examined and found to be viable from beginning to end including the anastomosis, attention was turned towards the gallbladder. The Bookwalter retractor was attached to the upper part of the table. Using blunt and sharp dissection, the gallbladder freed from the surrounding duodenum, stomach, and so forth. Adhesions in that area were also quite numerous. The gallbladder was impressively distended. It was as big as a large pear at least. Using the electrocautery and blunt dissection, the triangle of Calot was dissected free identifying the cystic duct and cystic artery, which were doubly clipped and divided. The gallbladder was dissected free in a retrograde fashion using electrocautery. Some spillage of bile was noted, but this was suctioned free. There was no spillage of stones and indeed no stones in the gallbladder once excised. The liver bed had some oozing of blood. This was packed off and subsequently secured with both electrocautery and Carmen powdered hemostatic agent. The gastrostomy tube was deemed advisable for decompression postoperatively. A Gregg type gastrostomy technique was used with a pursestring suture doubly applied of 2-0 silk. Through a left upper quadrant incision, a 24-Hungarian ABILIO gastrostomy tube was passed and tested with the balloon and ultimately passed into the stomach after entering the stomach with small amount of electrocautery and hemostat technique. The balloon was insufflated and the pursestring suture secured doubly. Stomach was then secured to the left upper quadrant anterior abdominal wall on the peritoneal side with interrupted 3-0 silk suture. Flushing of the tube assured its function. Reinspection of the left upper quadrant in the subhepatic space showed good hemostasis overall. Reinspection of the lower abdomen showed no sign of enteric leakage or enterotomies that were unaddressed anywhere in the abdomen. Further irrigation undertaken throughout the abdomen and plan was made for closure. A midline fascia was reapproximated with running bidirectional #1 PDS suture. Subcutaneous tissue copiously irrigated and skin closed with clipping device. Mepilex silver sponge dressing was applied as was an OpSite. The operation was very prolonged, complicated, and difficult, lasting from 4 p.m. to approximately 09:30 p.m., 5-1/2 hours. Electronically Signed By: DOMI ZHOU MD 08/17/18 1414 PATIENT NAME: YNES VELASQUEZ OPERATIVE REPORT DATE OF : 35 REPORT #: [id number] PHYSICIAN: DOMI ZHOU MD PCP: NATALIYA GANNON MD REPORT IS CONFIDENTIAL AND NOT TO BE RELEASED WITHOUT AUTHORIZATION [address] [address] Signed MD CITLALI Medley/MODL /[id number] cc: Dr. Domi Carcamo Copies: ~ Electronically Signed By: DOMI ZHOU MD 08/17/18 1414 PATIENT NAME: YNES VELASQUEZ OPERATIVE REPORT DATE OF : 35 REPORT #: [id number] PHYSICIAN: DOMI ZHOU MD PCP: NATALIYA GANNON MD REPORT IS CONFIDENTIAL AND NOT TO BE RELEASED WITHOUT AUTHORIZATION
--- NOTE | 2018-08-17 15:15 | NUR ---
PT REMAINS FORGETFUL BUT SHE'S MUCH LESS IRRITABLE AND NOW ENJOYING CONVERSATION WITH NURSE CLINICAL ADMISSIONS MANAGER AT THE BEDSIDE. ATTEMPTS ARE BEING MADE FOR NEW IV PLACEMENT.
--- NOTE | 2018-08-17 15:53 | NUR ---
20 G IV STARTED IN RT LOWER LEG BY SHIRA BERGER. MULTIPLE ATTEMPTS IN BILAT ARMS BY 3 OTHER RN'S. PT JAZMYN WELL, HOWEVER REMAINS CONFUSED.
--- NOTE | 2018-08-17 16:10 | NUR ---
PT'S SON HAS ARRIVED AT THE BEDSIDE; THIS RN LISTENED TO PT EXPLAIN TO HER SON THE AFTERNOON SHE'S HAD AND SHE WAS ABLE TO REMEMBER THE EVENTS- SHE WAS ABLE TO REMEMBER HER EVENT OF IRRITABILITY AND CONFUSION SHE HAD EARLIER. PT REMAINS SOMEWHAT CONFUSED AND FORGETFUL BUT SHE'S ABLE TO ANSWER ORIENTATION QUESTIONS AGAIN. SHE'S ALSO TRYING TO APOLOGIZE TO STAFF FOR HER "OUTBURST" AND STATES SHE "DOESN'T KNOW WHAT CAUSED IT." EMOTIONAL SUPPORT AND REASSURANCE PROVIDED. PER PT REQUEST TO BE MORE COMFORTABLE, PT ASSISTED IN PUTTING ON HER OWN PAJAMAS. [facility] RUNNING INTO RIGHT LEG PIV; CONTINUOUS FLUIDS WITH MEROPENEM RUNNING INTO LEFT ARM PIV. PT'S DRAINS REMAIN THE SAME PREVIOUS ASSESSMENT. RIGHT LEXI COLOR IS SLIGHTLY MORE MURKY AND PEA GREEN. DRSGS ALL REMAIN C/D/I. JARAMILLO IN PLACE DRAINING ADEQUATE URINE. VSS. BED ALARM HAS BEEN TURNED ON AND ALL FALL PRECAUTIONS IN PLACE. CALL LIGHT WITHIN REACH. WILL CONTINUE TO CLOSELY MONITOR.
--- NOTE | 2018-08-17 17:15 | NUR ---
PT RESTING IN BED COMFORTABLY; CLEARS DINNER TRAY HAS ARRIVED. DR. ZHOU HAS BEEN UPDATED VIA PHONE ON PT'S IMPROVED MENTATION STATUS. CALL LIGHT WITHIN REACH. WILL CONTINUE TO MONITOR.
--- NOTE | 2018-08-17 18:37 | NUR ---
THIS RN HAS STRIPPED AND EMPTIED 20 ML FROM RIGHT ABD LEXI. AFTER STRIPPING LEXI; COLOR OF OUTPUT IN THE TUBING IS NOW A CLEAR SEROSANG/TEA COLOR (WAS MURKY GREEN). IRRIGATED G TUBE AT THIS TIME PT HASN'T MUCH OUT OVER THE LAST TWO HOURS- IMMEDIATELY THE TUBE STARTED DRAINING SOME GREEN OUTPUT WHICH WAS THEN IMMEDIATELY A CLEAR RED COLOR- HARD TO TELL AT THIS POINT IF THIS REDNESS IS AN ADNORMAL FINDING OR IF IT IS JUST BECAUSE PT HAD RED JELLO CUP FOR DINNER- WILL CONTINUE TO CLOSELY MONITOR WHETHER THIS CHANGES BACK TO ITS GREEN COLOR OR IF IT REMAINS RED LIKE THIS, WHICH COULD MEAN IT WASN'T FROM THE JELLO- WILL ALSO INFORM ONCOMING NOC RN OF THIS TO MONITOR AFTER I LEAVE.
--- NOTE | 2018-08-17 18:40 | NUR ---
ALSO CHANGED DRSG AT THIS TIME AROUND RIGHT LEXI THE GAUZE PLACED THIS AFTERNOON WAS MILDLY SATURATED- SPLIT GAUZE AND TRANSPARENT DRSG PLACED AND C/D/I.
--- NOTE | 2018-08-17 19:15 | NUR ---
CONTINUOUS FLUIDS SWITCHED TO RLE PIV PT IS STARTING TO PULL AT LINES; WITH TUBING UNDER HER SWEATPANTS PT IS LESS LIKELY TO PULL AT TUBING. PT DOSING OFF INTO SLEEP AT THIS TIME
--- NOTE | 2018-08-17 20:00 | NUR ---
PT IN BED WITH BED ALARM ON, DISORIENTED TO PLACE, REORIENTED. SINUS RHYTHM WITH PAC, IRRGULAR SOUNDS ON ASCULTATION, HX CHRONIC CARDIAC PROBLEMS. LUNGS CLEAR IN BUL, CRACKLES TO BLL, ON 2L NC. ABD TENDER, BOWEL TONES ACTIVE X4, DENIES NAUSEA, MIDLINE ABD SITE COVERED C/D/I, RIGHT LEXI DRAINING GREEN TO MURKY [place] FLUID, LEFT JTUBE HOOKED TO JARAMILLO AT GRAVITY DRAINING WELL. JARAMILLO CATH IN PLACE DRAINING YELLOW URINE. IV SITES ASSESSED, FLUSHED, WNL. D5LR INFUSING AT 125 ML/HR. BED ALARM ON, CLEAR LINE OF SIGHT. WILL CONTINUE TO MONITOR.
--- NOTE | 2018-08-17 21:49 | NUR ---
REPORT RC'D FROM DAY SHIFT NURSE RHYS. REPORTS PT HAS HAD INCREASED CONFUSION, DRAINS TO BE FLUSHED AND EMPITED, BED ALARM ON, AND MONITOR PT CLOSELY TO MAINTAIN LINES AND DRAINS. CLEAR LINE OF SIGHT. BED RESTING IN BED WATCHING TV.
--- NOTE | 2018-08-17 22:06 | NUR ---
PT ATTEMPTING TO GET OUT OF BED. REDIRECTED AND REORIENTED. PT STATES "I WANT TO GO HOME." PT REFUSING TO STAY IN BED. NURSE AT BEDSIDE TO PROVIDE THERAPEUTIC COMMICATION.
--- NOTE | 2018-08-17 22:30 | NUR ---
PT REPOSITIONED, THERAPEUTIC COMMINUCATION, REDIRECTION. PT C/O 02/15 ABD PAIN STATES "MY SUTURES HURT." 2MG MORPHINE GIVEN. WILL COTINUE TO MONITOR AND REASSESS PAIN AND CONFUSION.
--- NOTE | 2018-08-17 23:39 | NUR ---
PT ATTEMPTING TO GET OUT OF BED AND REQUESTING TO GO HOME, REDIRECTED, THERAPEUTIC COMMUNICATION. BED ALARM ON. WILL CONTINUE TO MONITOR.
--- NOTE | 2018-08-18 00:44 | NUR ---
PT NOTED TO HAVE INCREASED CONFUSION AND ANXIETY. PT DISORIENTED TO ALL EXCEPT SELF. PT STATES SHE HEARS THE PILLOWS TALKING TO HER. PT REPORTS SEEING OTHER PEOPLE IN HER ROOM. PT STATES "I'M NERVOUS." PT C/O CONTINUED ABD PAIN. PT REORIENTED, THERAPEUTIC COMMUNICATION, REASSURED, AND 15 MG IV TORADOL GIVEN. JTUBE FLUSHED AND WNL, GREEN DRAINAGE NOTED. LEXI DRAIN WNL WITH MINIMAL CLEAR OUTPUT. DRESSINGS REMAIN C/D/I. BOWEL TONES ACTIVE X4. WILL CONTINUE TO MONITOR.
--- NOTE | 2018-08-18 02:16 | NUR ---
PT ATTEMPTING TO GET OUT OF BED. DISORIENTED TO ALL EXCEPT SELF. ATTEMPTED TO REORIENT W/O SUCCESS. PT HAS NOT RESTED MUCH AT ALL THIS EVENING, ATTEMPTED TO CALM AND ADVISED TO REST, PT AGREEABLE. WILL CONTINUE TO MONITOR.
--- NOTE | 2018-08-18 03:09 | NUR ---
PT REMAINS CONFUSED, SPEAKING TO SELF, STATING SHE SEES PEOPLE IN ROOM AND BELEIVES SHE IS IN A [employer]. ATTEMPTED TO REORIENT W/O SUCCESS. REASSURED AND CALMED PT. PT AGREEABLE TO REST AND STATES SHE IS EXHAUSTED. BED ALARM ON. WILL CONTINUE TO MONITOR.
--- NOTE | 2018-08-18 04:35 | NUR ---
PT ABLE TO REST FOR SHORT PERIOD OF TIME. CURRENTLY IN BED WITH EYES CLOSED, RESPIRATIONS EVEN AND UNLABORED.
--- NOTE | 2018-08-18 05:55 | NUR ---
PT NOTED TO HAVE INCREASED CONFUSION AND AGGITATION AND BEGINNING OF SHIFT. PT NEEDING TO BE REDIRECTED, REASSURED, AND THERPEUTIC COMMUNICATION TO REDUCE ANXIETY AND AGGITATION. PT RESTLESS FOR MAJORITY OF SHIFT, PT SLEPT WELL BETWEEN [phone]. PT NOTED TO TO SEE AND HEAR THINGS THAT WERE NOT PRESENT, REORIENTATION NEEDED THROUGHOUT NIGHT. PAIN CONTROL WAS AN ISSUE AT BEGINNING OF SHIFT, MORPHINE 2MG IV X1, 15MG TORADOL X1, AND SCHEDULED TYLENOL GIVEN, PAIN CONTROLLED. ABD DRESSING REMAIN C/D/I. RIGHT LEXI HAD MINIMAL OUTPUT THROUGHOUT THE NIGHT, 3CC OF MURKY GREEN DRAINAGE. LEFT TUBE, FLUSHED AND PATENT, 100 CC CLEAR TO LIGHT YELLOW DRAINAGE. JARAMILLO CATH IN PLACE AND 925 ML OUTPUT FOR SHIFT. D5LR INFUSING AT 125 ML/HR. ALL LINES AND DRAINS PROTECTED AND COVERED.
--- NOTE | 2018-08-18 06:39 | NUR ---
PT AWAKENS EASILY TO VERBAL STIMULI, LABS OBTAINED, PT NOW RESTING WITH EYES CLOSED. NO ACUTE DISTRESS NOTED.
--- NOTE | 2018-08-18 07:45 | NUR ---
PT ASLEEP IN BED AT THIS TIME. APPEARS COMFORTABLE WITH NO S/S OF PAIN OR DISCOMFORT. CALL LIGHT WITHIN REACH. BED ALARM ON/FALL PRECAUTIONS IN PLACE. WILL CONTINUE TO MONITOR.
--- NOTE | 2018-08-18 08:36 | NUR ---
PT RESTING IN BED QUIETLY AND CALMLY. PT IS DROWSY AND FALLS ASLEEP THROUGHOUT ASSESSMENT- REAWAKES TO SOUND. PT DENIES ANY PAIN, N/V OR SOB. PT IS PLEASANTLY CONFUSED AND DISORIENTED TO SURROUNDINGS. PER NOC RN, PT GOT NO SLEEP UNTIL EARLY THIS AM SO THE DROWSINESS IS NOT SURPRISING. PT'S O2 SATURATION WHEN CHECKED WAS MID 70'S- PT WAS REFUSING TO KEEP OXYGEN ON FOR NOC RN. PT ALLOWED ME TO PLACE 3 L/MIN O2 VIA NC ON HER AT THIS TIME AND HER SATS RETURNED TO LOW 90'S. FINE CRACKLES IN LUNG BASES. ACTIVE BOWEL SOUNDS. LEXI STRIPPED AND DRSG CHANGED AROUND THE LEXI SITE IT IS SATURATED- NEW GAUZE PLACED AND NOW C/D/I. MID ABD INCISION AND LEFT G TUBE DRSGS C/D/I. GTUBE DRAINING SMALL AMOUNT CLEAR GREEN. RIGHT LEXI DRAINING SMALL AMOUNT OF THICK LIGHT GREEN DRNG. JARAMILLO IN PLACE DRAINING CLEAR SARAH URINE. PT UNABLE TO GRASP EDUCATION AT THIS TIME. DUE TO PT'S RECENT SLEEPLESSNESS AND ANXIETY, I WILL LET PT NAP A LITTLE WHILE LONGER; THEN GET PT UP TO RECLINER FOR THE SHIFT TO ASSIST IN PROPER SLEEP TONIGHT. CALL LIGHT WITHIN REACH. BED ALARM IN PLACE. PT VISIBLE FROM NURSES STATION. FALL PRECAUTIONS IN PLACE. CONTINUOUS FLUIDS CONNECTED TO RLE PIV. WILL CONTINUE TO MONITOR.
--- NOTE | 2018-08-18 09:20 | NUR ---
DR. RIDLEY AT THE BEDSIDE ASSESSING PT. PT PLEASANT, CALM AND COOPERATIVE FOR HER ASSESSMENT. DR. RIDLEY NOTIFIED OF PT'S RECENT IRITABILITY, CONFUSION, LACK OF SLEEP X2 NIGHTS. REQUEST FOR SOMETHING TO HELP PT'S ANXIETY AND RESTLESSNESS FOR TONIGHT'S SLEEP.
--- NOTE | 2018-08-18 10:30 | NUR ---
THIS RN ASSISTED PT UP TO RECLINING CHAIR FROM HER BED. X1 PERSON ASSIST. LINENS CHANGED. DRAINS AND JARAMILLO EMPTIED. DRSGS DRY. PT NOW RESTING IN THE CHAIR WATCHING the[employer]. CALL LIGHT WITHIN REACH. FALL PRECAUTIONS IN PLACE. WILL CONTINUE TO MONITOR.
--- NOTE | 2018-08-18 11:20 | NUR ---
PT SITTING UP IN CHAIR DOSING IN AND OUT OF SLEEP; SHE REMAINS CALM AND COOPERATIVE. CALL LIGHT WITHIN REACH. FALL PRECAUTIONS REMAIN IN PLACE. WILL CONTINUE TO MONITOR.
--- NOTE | 2018-08-18 12:10 | NUR ---
ASSESSMENT COMPLETED. PT'S BP REMAINS SOMEWHAT ELEVATED. PT REMAINS UP IN CHAIR DROWSY BUT IS PLEASANT, CALM AND COOPERATIVE. SHE DENIES ANY PAIN, N/V OR SOB. 3 L/MIN O2 VIA NC. CLEAR LUNG SOUNDS/FINE CRACKLES IN BASES. REQUIRES ENCOURAGEMENT TO COUGH AND DEEP BREATHE- PT HAS A MOIST, CONGESTED, WEAK, NONPRODUCTIVE COUGH. NO CHANGE IN DRAINS OR DRSGS; DRSGS REMAIN C/D/I. JARAMILLO IN PLACE; NO CHANGE AND WNL. DR. ZHOU HAS ARRIVED IN THE ROOM AT END OF MY ASSESSMENT. NOTIFIED DR. ZHOU OF DR. RIDLEY'S CONCERN FOR POSSIBLE NEED FOR CENTRAL LINE/TPN. ALSO UPDATED HIM ON PT'S LACK OF SLEEP AND HIGH BP. DR. ZHOU STATES TO KEEP PT ON CLEARS EXCEPT FOR ENSURES- CLAMP G TUBE TO ASSESS PASSAGE OF ENSURE THROUGH GI SYSTEM. PT STATES TO THIS RN AND ABELARDO THAT SHE HAS STARTED PASSING FLATUS. PLAN IS TO ASSESS ENSURE ABSORPTION BEFORE PLACING CENTRAL LINE. PT HAS NO FURTHER QUESTIONS OR CONCERNS. CALL LIGHT WITHIN REACH. FALL PRECAUTIONS IN PLACE. WILL CONTINUE TO MONITOR.
--- NOTE | 2018-08-18 14:23 | NUR ---
PT UP IN CHAIR AFTER JUST GETTING PRN TORADOL FOR ABD PAIN. WILL CONTINUE TO MONITOR EFFECTIVENESS OF THIS. SHE REMAINS SLEEPY BUT DENIES ANY OTHER NEEDS TO BE MET AT THIS TIME. CALL LIGHT WITHIN REACH. WILL CONTINUE TO MONITOR.
--- NOTE | 2018-08-18 15:30 | NUR ---
THIS RN HAS JUST COMPLETED ASSISTING PT BACK TO BED AND COMPLETED HEAD TO TOE BED BATH, LOTION/SKIN CARE, NEW GOWN AND JARAMILLO CATH CARES. PT GREATLY ENJOYED THIS AND FOUND IT RELAXING. PT DRANK ALL 240 ML OF CLEAR ENSURE OVER LUNCH PERIOD. GTUBE REMAINS CLAMPED PER DR. ZHOU TO ASSESS PASS THROUGH OF ENSURE. LEXI DRAIN EMPTIED AT THIS TIME WELL- 40 CC LIGHT GREEN DRNG. PT HAS NO FURTHER NEEDS TO BE MET AT THIS TIME. SHE'S DROWSY AND FALLING ASLEEP SINCE BACK IN BED. BED CALL LIGHT WITHIN REACH. FALL PRECAUTIONS IN PLACE. WILL CONTINUE TO MONITOR.
--- NOTE | 2018-08-18 16:26 | NUR ---
ASSESSMENT COMPLETED AT THIS TIME. PT IS RESTING IN BED DOSING IN AND OUT OF SLEEP. PT AWAKE FOR THIS ASSESSMENT- SHE DENIES ANY PAIN, N/V OR SOB. SHE HAS BEEN VERY PLEASANT, CALM AND COOPERATIVE TV WITH NO EPISODES OF AGITATION OR RESTLESSNESS. LUNGS CLEAR/DIM. 3 L/MIN NC. DRSGS ON ABD ALL C/D/I. GTUBE REMAINS CLAMPED. RIGHT LEXI LIGHT GREEN OUTPUT. JARAMILLO WNL. FLUIDS RUNNING WITHOUT ISSUES INTO RLE PIV. PT DENIES ANY NEEDS TO BE MET AT THIS TIME. CALL LIGHT WITHIN REACH. FALL PRECAUTIONS IN PLACE. WILL CONTINUE TO MONITOR.
--- NOTE | 2018-08-18 17:10 | NUR ---
PT SITTING UP IN BED AND JUST FINISHED A PHONE CALL WITH A FRIEND. UPON ENTERING, PT WITH FLAT AFFECT, STATING HER FRUSTRATIONS OF BEING IN HOSPITAL AND SAYS SHE FEELS LIKE SHE'S IN A RESIDENTIAL. PT ALSO STATES HER ANGER ABOUT NOT BEING ABLE TO EAT FOOD. EDUCATION GIVEN ON POST OP PROCESS BUT PT UNINTERESTED IN WHAT I SAY. CALL LIGHT WITHIN REACH. WILL CONTINUE TO MONITOR.
--- NOTE | 2018-08-18 18:19 | NUR ---
PT WAS BROUGHT MASHED POTATOS PER DR. ZHOU'S ORDER; SHE'S EATING THEM NOW WHILE VISITING WITH A FRIEND AT THE BEDSIDE. CALL LIGHT WITHIN REACH. WILL CONTINUE TO MONITOR.
--- NOTE | 2018-08-18 19:45 | NUR ---
PT SHIFT REPORT RECEIVED FROM DAY SHIFT RN. PT RESTING IN BED. VISITOR JUST LEFT. CALL LIGHT IN REACH. WILL CONTINUE TO CLOSELY MONITOR.
--- NOTE | 2018-08-18 19:50 | NUR ---
PT DRANK 75% OF CLEAR ENSURE FOR DINNER WELL 75% OF MASHED POTATO
--- NOTE | 2018-08-18 21:00 | NUR ---
PT ASSESSMENT COMPLETED. PT BREATH SOUNDS CLEAR AND DIMINISHED IN BASES. BOWEL TONES ACTIVE. PT DENEIS PAIN IN ABDOMEN. DRESSING HAS SMALL AREA OF SHADOWING. LEXI DRAIN HAS THICK GREENISH FLUID NOTED. ABD SLIGHTLY DISTENED. PT HAS JARAMILLO IN WITH CLEAR YELLOW URINE NOTED. IVS FLUSHED WITH NO ISSUES. WILL CONTINUE TO CLOSELY MONITOR.
--- NOTE | 2018-08-18 22:30 | NUR ---
PT RESITNG IN BED. ALL MEDICATION GIVEN. PT DENIES ANY NEEDS AT THIS TIME. WILL CONTINUE TO CLOSELY MONITOR.
--- NOTE | 2018-08-19 01:07 | NUR ---
CALLED MD ZHOU TO UPDATE THAT PT WOKE UP AND IS COMPLAINING OF SOB AND STATES "I CANT BREATH". PT HR INCREASED TO 120'S, BP 188/67, SPO2 DECREASED TO 84%. INCREASED OXYGEN UP TO 6L NC. PER MD GIVE 20 LASIX IV ONCE, DECREASE IV FLUIDS TO 85MLS/HR, GIVE ONE TIME DOSE OF ALBUTEROL. PTS LUNG SOUNDS WERE CLEAR PRIOR IN THE SHIFT AND NOW HAS NOTED WHEEZES AND CRACKLES THROUGHOUT. WILL CONTINUE TO CLOSELY MONITOR.
--- NOTE | 2018-08-19 02:00 | NUR ---
PT RSTING IN BED AT THIS TIME. PT SPO2 94% ON 3L NC. PT HR 90-100'S. RR- 17. PTS JARAMILLO HAS CLEAR LIGHT YELLOW URINE PRESENT. LEXI DRAIN DRAINING GREENISH COLORED FLUID. PT DENIES PAIN. WILL CONTINUE TO CLOSELY MONTIOR.
--- NOTE | 2018-08-19 03:56 | NUR ---
PT CONTINUES TO REST IN BED SINCE EPISODE OF FEELING LIKE SHE CANT BREATH. WAS ABLE TO TURN OXYGEN BACK TO 3L SHORTLY AFTER PATIENT RECEIVED A NEB TREATMENT AND LASIX. JARAMILLO PUTTING OUT CLEAR LIGHT YELLOW URINE. WILL CONTINUE TO CLOSELY MONITOR.
--- NOTE | 2018-08-19 06:35 | NUR ---
CALLED MD ZHOU TO UPDATE THAT PT HAS BECOME MORE TYCHYPNIC AGAIN THIS AM, WITH DECREASED SPO2, INCREASED HR, INCREASED SOB, AND INCREASED CRACKLES THROUGHOUT LUNG BASES. UPDATED ABOUT LEXI DRAIN COLOR BEING BROWN THIS AM. PER MD ORDER AN X-RAY, 20MG IV LASIX ONCE, AND 20MEQ POTASSIUM IV. WILL CONTINUE TO CLOSELY MONITOR.
--- NOTE | 2018-08-19 07:45 | NUR ---
PT SLEEPING IN BED AT THIS TIME. NO S/S OF PAIN OR DISCOMFORT. VSS AND BREATHING UNDER CONTROL. WILL CONTINUE TO MONITOR. CALL LIGHT WITHIN REACH. BED ALARM ON. FALL PRECAUTIONS IN PLACE.
--- NOTE | 2018-08-19 08:45 | NUR ---
ASSESSMENT COMPLETED. PT DROWSY/IN AND OUT OF SLEEP IN BED. PT IS ORIENTED BUT FORGETFUL. 4 L/MIN O2 VIA NC. BILATERAL LUNG BASES ARE DIM/COURSE CRACKLES/ UPPERS ARE CLEAR. PT'S ABD HAS ACTIVE BOWEL TONES. TENDERNESS NOT PRESENT AT THIS TIME. ALL DRSGS ON ABD ARE C/D/I. G TUBE REMAINS CLAMPED. LEXI HAS DARK GREEN OUTPUT. JARAMILLO IN PLACE WITH CLEAR/COLORLESS URINE- ADEQUATE OUTPUT. LEFT AC HAS K RIDER INFUSING AT THIS TIME. RLE IV WITH CONTINUOUS FLUIDS AND MEROPENEM. PT DENIES PAIN, N/V AND SOB. EDUCATION REVIEWED WITH PT BUT SHE'S UNINTERESTED. CALL LIGHT WITHIN REACH. FALL PRECAUTIONS IN PLACE. WILL CONTINUE TO MONITOR.
--- NOTE | 2018-08-19 09:37 | NUR ---
PT'S K RIDER HAS FINISHED INFUSING AT THIS TIME. LEFT AC FLUSHES WELL AND IS NOW SALINE LOCKED. PT IS ASLEEP AND LOOKS COMFORTABLE WITH NO S/S OF PAIN OR DISCOMFORT. CALL LIGHT WITHIN REACH. BED ALARM IN PLACE. WILL CONTINUE TO MONITOR.
--- NOTE | 2018-08-19 10:30 | NUR ---
CALLED AND UPDATED MD ZHOU THAT PT HAS HAD 400MLS OUTPUT WITH LASIX, BUT PATIENT REMAINS SOB, WITH CRACKLES THROUGHOUT, PT REMAINS ON 6L OXYMASK AND AT TIMES UP TO 10L OXYMASK. PER MD GIVE ADDITIONAL DOSE OF 20 LASIX IV ONCE AND AN ALBUTEROL TREATMENT. CONSULT WITH DR. RIDLEY AND SEE IF SHE HAS ANY FURTHER SUGGESTIONS.
--- NOTE | 2018-08-19 11:20 | NUR ---
PATIENT UPGRADED TO ORAL LOW-FIBER DIET TODAY. SHE WAS ALLOWED MASHED POTATOES AND GRAVY YESTERDAY ALONG WITH CLEAR ENSURE. TPN MAY STILL BE INITIATED SOON. A TPN FORMULATION OF 1.5 LITERS OF 15% DEXTROSE (765 ERICK), 75 GRAMS PROTEIN (300 ERICK), AND 250 ML 20% LIPIDS M-W-F (AVG OF 214 ERICK) WILL PROVIDE AN AVERAGE OF 1279 CALORIES PER DAY WHICH IS 33.9 CALORIES/KG AND 2 GRAMS PROTEIN/KG. LABS LOOK GOOD TODAY - NO GLUCOSE OR ELECTROLYTE ABNORMALITIES. CONTINUE ENSURE IN THE MEANTIME. WILL CONTINUE TO MONITOR.
--- NOTE | 2018-08-19 11:26 | NUR ---
PT ASSISTED BY THIS RN UP TO RECLINER. PT IS WEAK AND UNSTEADY ON HER FEET. PT C/O ABD PAIN WITH MOVEMENT. PT BECAME TEARFUL AND UPSET, STATING THAT SHE "JUST WANTS TO GO HOME." REQUESTED THIS RN TO ASSIST HER WITH CALLING HER SON, YUE. I OVERHEARD HER ON THIS PHONE CALL CRYING, ASKING HER SON TO COME GET HER, STATING THAT THIS STAFF IN THE HOSPITAL ARE TRYING TO KILL HER. UNSURE WHAT HER SON SAID ON THE PHONE BUT SHE HUNG UP ON HIM. EMOTIONAL SUPPORT AND THERAPEUTIC COMMUNICATION GIVEN. EDUCATION PROVIDED. DRAIN EMPTIED. ALLEYVN ON COCCYX TO HELP PROTECT BONY PROMINENCE. PRN TORADOL GIVEN. CALL LIGHT WITHIN REACH. FALL PRECAUTIONS IN PLACE. WILL CONTINUE TO MONITOR.
--- NOTE | 2018-08-19 12:09 | NUR ---
ASSESSMENT COMPLETED AGAIN AT THIS TIME. LUNG SOUNDS HAVE IMPROVED SINCE AM ASSESSMENT. SHE REMAINS UP IN THE RECLINER AND MUCH MORE CALM AND COMFORTABLE AFTER GETTING TORADOL, AND HER SON YUE HAS ARRIVED TO VISIT. HE SPENT NUMEROOUS MINUTES TALKING TO THE PT TO ASSURE HER OF THE PLAN OF CARE WHICH SHE CALMED DOWN LISTENING TO. HER SON LEFT, AND SHE APPEARS WITHDRAWN AND DEPRESSED, ALMOST DEFEATED. MORE EMOTIONAL SUPPORT GIVEN. MASHED POTATOS ORDERED PER HER REQUEST. NO CHANGE FROM MORNING ASSESSMENT OTHER THAN IMPROVEMENT IN LUNGS. OFIRMEV INITIATED AT THIS TIME. CALL LIGHT WITHIN REACH. FALL PRECAUTIONS IN PLACE. WILL CONTINUE TO MONITOR.
--- NOTE | 2018-08-19 13:30 | NUR ---
PT STILL UP IN RECLINER RESTING CALMLY- IN AND OUT OF SLEEP; PT STATES SHE "FEELS EXHAUSTED." LEXI STRIPPED, EMPTIED AND REINFORCED AT THIS TIME. SHE DENIES ANY NEEDS. SHE ONLY TOOK A FEW BITES OF MASHED POTATOS. CALL LIGHT WITHIN REACH. FALL PRECAUTIONS IN PLACE. WILL CONTINUE TO MONITOR.
--- NOTE | 2018-08-19 15:01 | NUR ---
DR. ZHOU HAS REVISITED PT AT BEDSIDE AT THIS TIME. THIS RN UPDATED DR. ZHOU ON INCREASED LEXI OUTPUT TODAY COMPARED TO OVERNIGHT, OF PT'S INCREASED ABDOMINAL DISTENTION, OF PT'S NAUSEA WHEN SHE WAS UP MOVING BACK TO THE BED; PHENERGAN GIVEN AND I OPENED GTUBE TO JARAMILLO BAG- 100 ML DRAINED IMMEDIATELY. PT'S BEEN SLEEPING WHILE THIS RN HAS BEEN IN THE ROOM OVER THE LAST 20 MINUTES. CALL LIGHT WITHIN REACH. WILL CONTINUE TO MONITOR.
--- NOTE | 2018-08-19 16:00 | NUR ---
ASSESSMENT COMPLETED AT THIS TIME. PT ASLEEP IN BED. AWAKES TO SOUND/HER NAME. PT IS ORIENTED X4 BUT FORGETFUL. ALSO VERY DROWSY TODAY. SLEEPING FREQUENTLY. 4 L/MIN O2 VIA NC. CLEAR UPPER LUNGS. LEFT LOWER WHEEZY AND COURSE CRACKLES. RIGHT LOWER COURSE CRACKLES. PT'S ABD REMAINS MILDLY DISTENDED. DRSGS ALL C/D/I. STRIPPED LEXI AGAIN AT THIS TIME- DRNG REMAINS GREEN. G TUBE IS CLAMPED. JARAMILLO IN PLACE DRAINING ADEQUATE URINE. DR. ZHOU WAS NOTIFIED LAST HOUR OF PT'S PITTING EDEMA IN BILATERAL FLANK. PT REMAINS WEAK AMD DECONDITIONED. HER HR HAS SLIGHTLY ELEVATED AND IS MAINTAINING LOW 100'S- SINUS TACH ON TELE AND IRREGULAR HEART BEAT WHEN AUSCULTATED. PT HAS HAD NO PO INTAKE SINCE HER FEW BITES OF MASHED POTATOS EARLIER. UNABLE TO THOROUGHLY COMPLETE ALL EDUCATION DUE TO PT'S DROWSINESS. CALL LIGHT WITHIN REACH. BED ALARM ON . WILL CONTINUE TO MONITOR.
--- NOTE | 2018-08-19 16:30 | NUR ---
FULL BED BATH, JARAMILLO CATH CARES AND LINEN CHANGE COMPLETE AT THIS TIME. PT FOUND THIS VERY RELAXING. FACE WASHED. HAIR BRUSHED.
--- NOTE | 2018-08-19 18:26 | NUR ---
THIS RN AT BEDSIDE AT THIS TIME DR. ZHOU PLACED LEFT SUBCLAVIAN TRIPLE LUMEN. PT TOLERATED WELL.
--- NOTE | 2018-08-19 18:30 | NUR ---
ONLY A FEW BITES TAKEN OF PT'S HARD BOILED EGG AND COTTAGE CHEESE. SHE DRANK 50% OF HER CLEAR ENSURE.
--- NOTE | 2018-08-19 19:07 | NUR ---
LIPIDS Y-SITED INTO TPN LINE WHICH IS INFUSING INTO BROWN PORT OF NEWLY PLACED CVC. D5LR RUNNING INTO BLUE PORT. WHITE PORT IS SALINE LOCKED WITH SWABCAP IN PLACE. LEFT AC AND RLE PIV'S BOTH SALINE LOCKED AND READY FOR REMOVAL.
--- NOTE | 2018-08-19 19:45 | NUR ---
PT SHIFT REPORT RECEIVED FROM DAY SHIFT RN. PT IS RESTING IN BED AT THIS TIME. PT DENIES ANY NEEDS. PT STARTED ON TPN AND LIPIDS TODAY. WILL CONTINUE TO CLOSELY MONITOR.
--- NOTE | 2018-08-19 20:15 | NUR ---
CALLED AND UPDATED MD ZHOU IN REGAURDS TO PTS INCREASED RESPIRATORY RATE AND DECREASED OXYGENATION. INCREASED OXYGEN TO 6L NC. PER MD GIVE 20 LASIX AND 20MEQ POTASSIUM IV. VERIFIED CODE STATUS. PER MD PT IS A DNR/DNI. UPDATED ORDERS AT THIS TIME. WILL CONTINUE TO CLOSELY MONITOR.
--- NOTE | 2018-08-19 21:30 | NUR ---
PER MD ZHOU ORDER A NICOTINE PATCH FOR PATIENT AND START TONIGHT. PT ASSESSMENT COMPELTED. DRESSING HAS SMALL AREA OF CRAINAGE NOTED. LEXI HAS GREEN FLUID DRAINING. G-TUBE CLAMPED AT THIS TIME. PT DENIES ABD PAIN. PT ABD SLIGHTLY DISTENED. PT HIPS NOTED TO HAVE 1+ EDEMA. PT DENIES FEELING ANXIOUS. JUST FEELS LIKE SHE CANT BREATH WELL. JARAMILLO DRAINING CLEAR YELLOW URINE. WILL CONTINUE TO CLOSELY MONITOR.
--- NOTE | 2018-08-19 23:00 | NUR ---
UPDATED MD RIDLEY ABOUT PATIENT, SHE WILL REVIEW THE PATIENTS CHART AND GIVE ANY OTHER SUGGESTIONS SHE CAN THINK OF. WILL CALL MDS IF WORSENING OF SYMPTOMS. PT IS RESTING AT THIS TIME. WILL CONTINUE TO ENCOURAGE REST.
--- NOTE | 2018-08-20 | NUR ---
PT RESTING AT THIS TIME. PT REMAINS ON 8-10L OXYMASK. JARAMILLO DRAINING CLEAR YELLOW URINE. BREATH SOUNDS ARE MORE CLEAR AT THIS TIME. WILL CONTINUE TO CLOSELY MONITOR.
--- NOTE | 2018-08-20 02:37 | NUR ---
PT AWAKE AND REPOSITIONED. PT REMAINS ON OXYMASK AT 1OL. PT DENIES SOB AT THIS TIME. RR 24. WILL CONTINUE TO CLOSELY MONITOR.
--- NOTE | 2018-08-20 04:31 | NUR ---
PT CALLED. THIS RN IN TO TALK WITH PATIENT. PT WANTING TO KNOW WHAT TIME IT IT. PT STATES SHE FEELS LIKE SHE HAS BEEN IN BED FOR DAYS. EDUCATED PATIENT THAT SHE HAS BEEN IN THE HOSPITAL FOR A WEEK. PT IS FRUSTRATED THAT SHE HAS HAD MULTIPLE SURGERIES AND NEVER HAD IT TAKE THIS LONG TO GET BETTER AND THIS MANY ISSUES. SAT AND TALKED WITH PATIENT. PATIENT IS MORE UNDERSTANDING OF THE SITUATION. ENCOURAGED PT TO REST AT THIS TIME. PT DENIES ANY OTHER NEEDS. PT REMAINS ON 10L OXYMASK. PT BREATH SOUNDS ARE MORE CLEAR AND LESS CRACKLES NOTED THROUGHOUT. PT HAS HAD GOOD URINE OUTPUT WITH THE LASIX. PT DENIES SOB AT THIS TIME. WILL CONTINUE TO CLOSELY MONITOR.
--- NOTE | 2018-08-20 05:01 | NUR ---
PER MD RIDLEY GIVE AN ADITIONAL DOSE OF LASIX 20 MG AND ORDER AN X-RAY FOR THIS AM. WILL CONTINUE TO CLOSELY MONITOR.
--- NOTE | 2018-08-20 05:47 | NUR ---
PT CALLED AND STATED "I AM POOPING THE BED". PT TURNED AND PT FOUND TO HAVE LARGE [place] SOFT/PASTY STOOL. PT BEDDING CHANGED. PT CLEANED. PT REPOSITIONED FOR COMFORT. X-RAY IN TO COMPELTE SCAN THIS AM AND FIXER SUPERVISOR IN AFTER. NO OTHER ISSUES AT THIS TIME. WILL CONTINUE TO CLOSELY MONITOR.
--- NOTE | 2018-08-20 06:34 | NUR ---
CALLED MD ZHOU TO UPDATE ABOUT PATIENTS STATUS THROUGHOUT THE NIGHT. PT HAS HAD GOOD URINE OUTPUT WITH LASIX. PER MD GIVE ADITIONAL POTASSIUM SINCE WE GAVE MORE LASIX. GIVE 1 TIME ALBUTEROL TREATMEAT. GET CHEST X-RAY AND PLACE PATIENT ON VAPOTHERM. WILL CONTINUE TO CLOSELY MONTIOR. CALLED [facility]. WILL CONTINUE TO CLOSELY MONITOR.
--- NOTE | 2018-08-20 08:00 | NUR ---
ASSESSMENT COMPLETED AT THIS TIME. PT IS VERY PLEASANT, CALM AND COOPERATIVE- THE BEST MOOD SHE'S BEEN IN IN A FEW DAYS SINCE BEING HER RN. SHE IS ALSO THE MOST AWAKE SHE'S BEEN IN DAYS. A/O X4. WIDE AWAKE. ASKING FOR ASSISTANCE TO RECLINER. THIS RN HAS ASSISTED PT UP- PT VERY WEAK AND UNSTEADY ON HER FEET BUT ABLE TO MAKE THE TRANSFER. 20 L/MIN AND 80 FIO2 VIA VAPOTHERM. CLEAR UPPER LUNG LOBES BUT RLL COURSE CRACKLES AND LLL CLEAR. PT'S TACHYPNEIC. DRSGS ON ABD ARE C/D/I. RIGHT LEXI TO BULB SUCTION WITH GREEN OUTPUT. LEFT G TUBE CLAMPED. [place] IN PLACE WITH GOOD, ADEQUATE UOP. PT HAS ORDERED A PIECE OF WHITE TOAST AND APPLESAUCE FOR BREAKFAST. WILL SEE HOW PO INTAKE GOES. CALL LIGHT WITHIN REACH. WILL CONTINUE TO MONITOR.
--- NOTE | 2018-08-20 09:00 | NUR ---
PT HAS JUST HAD SECOND BM OF THE DAY- URGE CAME VERY QUICKLY AND PT GOT TO COMMODE WITH ASSISTANCE BUT HAD SOME INCONTINENCE WELL. PT WAS UPSET ABOUT HAVING INCONTINENCE AND REQUIRES MUCH EMOTIONAL SUPPORT TO TALK HER DOWN FROM BEING ANXIOUS ABOUT THIS. SHE STATES THIS HAS "RUINED HER BREAKFAST." BACK IN RECLINER WITH ORDERED FOOD IN FRONT OF HER. SHE'S ATTEMPTING SOME BITES NOW.
--- NOTE | 2018-08-20 09:25 | NUR ---
PT WAS ABLE TO TAKE A FEW BITES OF TOAST AND APPLESAUCE BUT REFUSES ANY MORE.
--- NOTE | 2018-08-20 10:30 | NUR ---
PT ASSISTED BACK TO BED PER HER REQUEST TO NAP SHE FEELS TIRED AND EXHAUSTED FROM RUSHING TO THE COMMODE THIS MORNING AND ANXIOUS OVER THE INCONTINENCE. PT ASSISTED TO BED WITH SOB ON EXERTION. PT BACK IN BED VERY TIRED. CALL LIGHT WITHIN REACH. WILL CONTINUE TO MONITOR.
--- NOTE | 2018-08-20 11:17 | NUR ---
PHENERGAN GIVEN AT THIS TIME PT STATES SHE'S GOT BAD NAUSEA. EMESIS BAG GIVEN TO HER. WILL CONTINUE TO MONITOR.
--- NOTE | 2018-08-20 12:16 | NUR ---
NOTIFIED DR. RIDLEY AT THIS TIME OF PT'S INCREASED HR AND SUSTAINING IN 120'S. VERBAL ORDER GIVEN FOR ONE TIME DOSE OF 5 MG METOPROLOL IV PUSH.
--- NOTE | 2018-08-20 12:17 | NUR ---
ALSO NOTIFIED DR. RIDLEY OF PT'S MAG LEVEL THIS AM OF 1.3. PER DR. RIDLEY, SPEAK WITH PHARMACY IN REGARDS TO POSSIBLY INCREASING HER AMOUNT IN TPN.
--- NOTE | 2018-08-20 12:20 | NUR ---
MET PT-HAS VISITOR IN . STAYED JUST A MOMENT TO LET THEM VISIT. PT STILL HAS A SENSE OF HUMOR-SHE REQUESTED I CALL HER CLUB DIRECTOR, WHICH I DID. PRAYED WITH PT, WILL FOLLOW NEEDED
--- NOTE | 2018-08-20 12:21 | NUR ---
SPOKE WITH PHARMACY AT THIS TIME IN REGARDS TO MAG WITH TPN. PER THEIR RECOMMENDATION, PT SHOULD GET A SEPARATE IV DOSE OF MAG BECAUSE IF INFUSED INTO TPN, PT WOULD ONLY GET HALF OF WHAT IS NEEDED BY TOMORROW'S LAB REDRAW. WILL SPEAK WITH DR. RIDLEY OR DR. ZHOU ABOUT THIS.
--- NOTE | 2018-08-20 12:30 | NUR ---
ASSESSMENT COMPLETED. PT STATES NO RELIEF AFTER GETTING PHENERGAN. DECIDED TO HOOK HER G TUBE UP TO JARAMILLO BAG FOR DRAINAGE TO GRAVITY IN HOPES OF NAUSEA RELIEF. DR. RIDLEY AT THE BEDSIDE AND NOTIFIED HER OF WHAT PHARMACY SAID ABOUT THEIR RECS FOR GIVING MAG REPLACEMENT ON ITS OWN. PT IS PLEASANT, CALM AND COOPERATIVE. SHE STATES SHE'S NOT HAVING ANY PAIN. HER LUNGS ARE CLEAR THROUGHOUT. NO CHANGES TO VAPOTHERM SETTINGS. ONE TIME DOSE OF METOPROLOL GIVEN FOR TACHYCARDIA. CALL LIGHT WITHIN REACH. WILL CONTINUE TO MONITOR.
--- NOTE | 2018-08-20 13:17 | NUR ---
MUCH RELIEF FROM NAUSEA AFTER PT'S GTUBE WAS CHANGED BACK TO GRAVITY. WILL KEEP TO GRAVITY FOR COMFORT PT IS GETTING TPN. PT HAS NO QUESTIONS OR CONCERNS. CALL LIGHT WITHIN REACH. WILL CONTINUE TO MONITOR.
--- NOTE | 2018-08-20 14:26 | NUR ---
COMPLETED BED BATH GIVEN AT THIS TIME. LINENS CHANGED. JARAMILLO CATH CARES COMPLETED. PT THOUGHT SHE WAS GOING TO HAVE BM SO WAS ASSISTED TO COMMODE BUT SHE DID NOT. VERY SOB WITH AMBULATION AND FOR A FEW MINUTES AFTERWARDS. ALL SETTINGS ON VAPOTHERM REMAIN THE SAME. PT'S GTUBE STILL TO GRAVITY. WILL CONSIDER CLAMPING PRIOR TO DINNER. CALL LIGHT WITHIN REACH. BED ALARM IN PLACE. WILL CONTINUE TO MONITOR.
--- NOTE | 2018-08-20 15:00 | NUR ---
DR. ZHOU HAS BEEN UPDATED ON PT NEEDING GTUBE TO GRAVITY. INFORMED OF MAG REPLACEMENT. ORDERS FOR NEW TPN THIS EVENING HAVE BEEN PLACED. PT DENIES ANY NEEDS TO BE MET AT THIS TIME. SHE SAYS SHE'S COMFORTABLE. CALL LIGHT WITHIN REACH. WILL CONTINUE TO MONITOR.
--- NOTE | 2018-08-20 15:31 | OR ---
[facility] [address], [place] [address] Signed DATE OF OPERATION: 08/19/2018 SURGEON: Domi Zhou MD PREOPERATIVE DIAGNOSIS: Profound malnutrition (prealbumin 3.9), need for central venous access for TPN while enteral nutrition ramps up. POSTOPERATIVE DIAGNOSIS: Profound malnutrition (prealbumin 3.9), need for central venous access for TPN while enteral nutrition ramps up. PROCEDURE PERFORMED: Left subclavian Arrow Blue Tip triple-lumen catheter placement. ANESTHESIA: 1% lidocaine. INDICATION: This 82-year-old white woman has chronic malnutrition, ongoing smoking, and recently underwent laparotomy for small bowel obstruction requiring significant bowel resection. 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 She had a prealbumin obtained, which was 3.9. She has had problems with eating for many months leading up to her hospitalization for which bowel obstruction was ultimately noted and treated. TPN is now required. The risks of bleeding, infection, pneumothorax, and other unforeseen complications related to placement of a central venous catheter had been reviewed with the patient and her two sons. They understand and wished to proceed. FINDINGS: Access to the right internal jugular vein was initially undertaken showing dark, nonpulsatile blood. Unfortunately, a flexible J-wire would only thread a limited distance and on that basis the site was abandoned despite efforts to make the internal jugular the site of access. The left subclavian was instead used, which easily passed the wire and catheter. A postprocedure chest x-ray shows good placement of the tip of the catheter just above the bifurcation of the bronchi. It is noted that she has opacities in both right and left lungs that are somewhat suspicious to me for malignancy, but we will see what the radiologist's interpretation of that image is. DESCRIPTION OF PROCEDURE: In the mild Trendelenburg position with the face turned to the left, the upper neck and Electronically Signed By: DOMI ZHOU MD 08/20/18 1531 PATIENT NAME: YNES VELASQUEZ OPERATIVE REPORT DATE OF : 35 REPORT #: [id number] PHYSICIAN: DOMI ZHOU MD PCP: NATALIYA GANNON MD REPORT IS CONFIDENTIAL AND NOT TO BE RELEASED WITHOUT AUTHORIZATION [facility] [address], [place] [address] Signed torso was prepared with chlorhexidine solution and draped sterilely. Using sterile gloves, mask, gown, and so forth, 1% lidocaine was injected over the right sternocleidomastoid muscle. Access to the right internal jugular vein was ultimately noted showing dark, nonpulsatile blood. Passage of a flexible J-wire from the Arrow Blue Tip triple-lumen catheter kit threaded, but not fully and on that basis it was removed. Additional efforts to cannulate the internal jugular on the right were successful. There was no arterial puncture. Due to the patient's discomfort and so forth, it was deemed appropriate to move to a different site. The drape was immediately shifted to the left infraclavicular space and using 1% lidocaine that area was anesthetized. On single pass with a Seldinger technique, the left subclavian vein was easily accessed showing dark, nonpulsatile blood. A flexible J-wire was passed down that needle without problem. The site was incised with an #11 blade, dilated with a blue dilator, and an Arrow Blue Tip triple-lumen catheter previously inspected and flushed with saline and capped partially. This passed over the wire. The wire was removed. Aspiration on the distal port showed dark, nonpulsatile bleeding. A Clave was applied to that site as well and flushing was without problem. The catheter was withdrawn a few centimeters given her body stature and using the enclosed collar device, it was secured to the skin securely. Anti-infective disk was applied as was a SorbaView dressing. In the upright position, a chest x-ray was performed by portable technique showing the tip of the catheter well above the atrium in the superior vena cava. Opacities in the left lung and two in the right lung were noted and whether these represent atelectatic changes or some other finding is uncertain to me, though I have maintained some suspicion for possible neoplastic change. We will see what the radiologist's interpretation is. She is free to use the catheter at this time. MD CITLALI Medley/ALFONSOL /[id number] Copies: Electronically Signed By: DOMI ZHOU MD 08/20/18 1531 PATIENT NAME: YNES VELASQUEZ OPERATIVE REPORT DATE OF : 35 REPORT #: [id number] PHYSICIAN: DOMI ZHOU MD PCP: NATALIYA GANNON MD REPORT IS CONFIDENTIAL AND NOT TO BE RELEASED WITHOUT AUTHORIZATION [address] [address] Signed ~ Electronically Signed By: DOMI ZHOU MD 08/20/18 153 PATIENT NAME: YNES VELASQUEZ OPERATIVE REPORT DATE OF : 35 REPORT #: [id number] PHYSICIAN: DOMI ZHOU MD PCP: NATALIYA GANNON MD REPORT IS CONFIDENTIAL AND NOT TO BE RELEASED WITHOUT AUTHORIZATION
--- NOTE | 2018-08-20 15:36 | NUR ---
TPN WAS STARTED LAST EVENING. 1.5 LITERS 20% DEXTROSE (1020 ERICK), 75 GRAM AMINO ACIDS (300 ERICK), AND 500 ML 20% LIPIDS M-W-F (AVG OF 428 ERICK/DAY). TOTAL CALORIES FROM TPN = 1,748 (46 ERICK/KG ADMIT WEIGHT). PATIENT ALSO ON A LOW-FIBER DIET, ONLY ATE BREAKFAST SO FAR TODAY. POC GLUCOSE 160, 166 TODAY. MG+ WAS 1.3 THIS MORNING - SHE RECEIVED REPLACEMENT TODAY. PHOS WAS WNL. NO NUTRITION INTERVENTION RECOMMENDED AT THIS TIME. WILL CONTINUE TO MONITOR.
--- NOTE | 2018-08-20 16:30 | NUR ---
PT RELAXING IN BED WITH HER SON YUE VISITING AT HER SIDE. ASSESSMENT COMPLETED AGAIN AT THIS TIME. PT STATES THAT SHE'S COMFORTABLE AND HAVING NO PAIN. SHE DENIES ANY N/V AND HER GTUBE IS TO GRAVITY. DRESSINGS ALL REMAIN C/D/I. NO CHANGES WITH LEXI. PT'S BREATHING REMAINS RAPID. NO CHANGES TO VAPOTHERM. SEE CHARTED ASSESSMENT. CALL LIGHT WITHIN REACH. FALL PRECAUTIONS IN PLACE. SCD ON AND IN PLACE. WILL CONTINUE TO MONITOR.
--- NOTE | 2018-08-20 17:35 | NUR ---
NOTIFIED DR. RIDLEY AT THIS TIME OF PT'S HR MAINTAINING 120'S-140'S AGAIN. ALSO UPDATED HER ON THE PT'S TACHYPNEA AND INCREASED BP'S. AWAITING ORDER FOR ONE TIME DOSE OF METOPROLOL.
--- NOTE | 2018-08-20 18:15 | NUR ---
PT'S TAKEN HER O2 OFF A FEW TIMES NEEDING ASSISTANCE WITH PLACING IT BACK ON; HER O2 SATS IMMEDIATELY DROPPED TO 60'S EACH TIME. SHE'S RESTING IN BED WITH NO C/O PAIN OR NAUSEA. CALL LIGHT WITHIN REACH. BED ALARM ON. WILL CONTINUE TO MONITOR.
--- NOTE | 2018-08-20 19:45 | NUR ---
PT SHIFT REPORT RECEIVED FROM DAY SHIFT RN. PT RESTING IN BED AT THIS TIME. PER REPORT PTS SPO2 HAS BEEN 90'S, BUT HER RR HAS BEEN IN THE MID 30'S MOST OF THE DAY. PT DENIES SOB AT THIS TIME. PT REMAINS ON VAPOTHERM. WILL CONTINUE TO CLOSELY MONITOR.
--- NOTE | 2018-08-20 20:30 | NUR ---
SPOKE WITH MD RIDLEY ABOUT PTS RESP RATE. PER MD WILL START SCHEDULED LASIX TO HELP WITH FLUID OVERLOAD. PER MD MAY GIVE ATIVAN FOR ANXIETY. NO OTHER CHANGES AT THIS TIME. WILL CONTINUE TO CLOSELY MONITOR.
--- NOTE | 2018-08-20 21:00 | NUR ---
PTS ASSESSMENT COMPLETED. PT IS RESTING IN BED. BREATH SOUNDS ARE CLEAR AND DIMINISHED AT THIS TIME. JARAMILLO IS DRAINING YELLOW URINE. PT DENIES ABD PAIN. EMPTIED LEXI DRAIN. DRESSING HAS AN UNCHANGED DRAINAGE SMALL AREA OF OLD DRAINAGE. MEDICATIONS ADMINISTERED. PT TOOK OFF SCD'S AND WILL NOT WEAR THEM AT THIS TIME. WILL CONTINUE TO CLOSELY MONITOR. BED ALARM ON FOR PATIENTS SAFETY.
--- NOTE | 2018-08-20 23:00 | NUR ---
PT RESTING IN BED. GAVE PRN ATIVAN FOR INCREASED ANXIETY AND RESTLESSNESS PER MD. WILL CONTINUE TO CLOSELY MONITOR. BED ALARM ON FOR PATIENT SAFETY. PTS HR IS 115, RR 30-35, SPO2 98% ON VAPOTHERM 20L AND 80% FIO2. PTS JARAMILLO OCCASSIONALLY AIR LOCKS AND NEEDS TO BE MOVED AROUND TO ALLOW IT TO DRAIN.
--- NOTE | 2018-08-21 00:45 | NUR ---
PT RESTING IN BED. CALLED RESPIRATORY THERAPY TO UPDATE THAT PTS SPO2 IS MAINTINING 98-100%. SETTINGS ON VAPOTHERM READJUSTED TO 20L AND 70% FIO2. WILL CONTINUE TO CLOSELY MONITOR.
--- NOTE | 2018-08-21 02:21 | NUR ---
FOUND TRYING TO GET UP. PT THINKS SHE IS PLAYING SLOT MACHINES. REPOSITIONED BACK TO BED. SATS DECREASED TO 84% FIO2 INC TO 75%.
--- NOTE | 2018-08-21 02:42 | NUR ---
PT CONT TO TRY TO GET OOB, THINKS SHE IS AT THE CASINO. GIVEN 1MG ATIVAN IV FOR RESTLESSNESS. CHNAGED OXYMETER TO FORHEAD AND READING 100%, FIO2 BACK 70%.
--- NOTE | 2018-08-21 03:22 | NUR ---
PT RESTING IN BED SINCE GETTING 1MG ATIVAN PER ORDERES. PT SPO2 100%. TITRATED FIO2 TO 65%. WILL CONTINUE TO CLOSELY MONITOR.
--- NOTE | 2018-08-21 04:50 | NUR ---
PT RESTING IN BED. CHECKED JARAMILLO AND DRAINED. PT ASLEEP AT THIS TIME, WILL ENCOURAGE REST. IV'S INFUSING WITH NO ISSUES. WILL CONTINUE TO CLOSELY MONITOR.
--- NOTE | 2018-08-21 06:26 | NUR ---
PT PULLED OFF OXYGEN TUBING. REORIENTED PT TO SITUATION. PT IS ALERT TO NAME, BOD, DATE, BUT THINKS SHE IS AT HOME AT THIS TIME. JARAMILLO EMPTIED. LABS DONE. PT DENIES PAIN AND SOB. BED ALARM ON FOR PATIENTS SAFETY. WILL CONTINUE TO CLOSELY MONITOR.
--- NOTE | 2018-08-21 07:36 | NUR ---
Patient laying in bed asleep, HOB up at approximately 45 degrees, visitor in room sitting next to bed. Report received from material handler 2nd shift CELINE Bauer.
--- NOTE | 2018-08-21 07:40 | NUR ---
Visitor leaving now. Patient continuing to sleep.
--- NOTE | 2018-08-21 08:12 | NUR ---
Calling out from bed, went into room and patient has legs between railing and states need to urinate. Helped her legs back into bed, helped drain urine catheter and she states feels better now. HR variable and was up to 160 mementarily. Scheduled dose of Lopressor given slow IV push, HR now is 102 and BP has come down to 168/59
--- NOTE | 2018-08-21 08:15 | NUR ---
Curtain open and patient visible from nurses station. She easily goes back to sleep. continues on vapotherm at 20LPM and 60% O2.
--- NOTE | 2018-08-21 08:24 | NUR ---
Dr Cheatham in to see patient, updates given.
--- NOTE | 2018-08-21 08:52 | NUR ---
patient bed alarm is on. Visitor in room.
--- NOTE | 2018-08-21 09:15 | NUR ---
DR RIDLEY UPDATED WITH PATIENT CONDITION. DR ROMERO IN SURGERY CURRENTLY. MESSAGE DELIVERED FOR HIM TO CALL ME WHEN AVAILABLE IN APPROXIMATELY 15 MINUTES.
--- NOTE | 2018-08-21 09:31 | NUR ---
Urine sample obtained from urinary catheter after clamping for 5 minutes. health record technician here helping to obtain Blood cultures. 1 set drawn by me using central line. infusions were stopped for 5 minutes before drawing blood. wasted 6ml before taking sample. blood easily aspirated, flushed with 20ml NS followed by heparin 50units/ml.
--- NOTE | 2018-08-21 09:34 | NUR ---
Patient is able to following directions but is weak, SCD's placed at 0830 and also positioned to left side and put G-tube to gravity.
--- NOTE | 2018-08-21 09:48 | NUR ---
fela tanner here for portable cxray. patient refusing nicotine patch, DR Cheatham aware. Nicotine patch DC'ed, DR Mooney just called me and I updated him on patient status, he states will come see her first after his next surgery.
--- NOTE | 2018-08-21 10:14 | NUR ---
with assistance from nursing home physician and Stephania BERGER, linens changed, bed bath complete. visitor here now. patient going to sleep easily now. patient asking questions and interacting well with me. a little difficult to understand.
--- NOTE | 2018-08-21 10:34 | NUR ---
IV ABX AND TYLENOL COMPLETED AND THOSE LINES DISCONNECTED AND PORTS FLUSHED WITH 10ML NS FOLLOWED BY 3ML OF HEPARIN 50UNITS/ML.
--- NOTE | 2018-08-21 11:49 | NUR ---
DR ROMERO IN TO SEE PATIENT, UPDATES GIVEN TO HIM.
--- NOTE | 2018-08-21 12:24 | NUR ---
RT CAME TO SEE PATIENT AND ADJUSTED O2 PERCENT ON VASOTHERM. DOWN TO 50%
--- NOTE | 2018-08-21 12:30 | NUR ---
I NOTIFIED KELLY FROM PHARMACY TO PLEASE CHECK THE FLAGYL DOSEAGE AND MAKE SURE IT'S APPROPRIATE FOR THIS PATIENT PER DR ROMERO'S NURSE NOTIFY ORDER.
--- NOTE | 2018-08-21 13:23 | NUR ---
MET WITH PT'S SON YUE BEFORE GOING TO SEE PT. HE IS CONCERNED ABOUT HIS MOTHER'S CONDITION TODAY-DOWN TURN FROM YESTERDAY. PT WAS AWARE OF MY PRESENCE, REACHED OUT TO HOLD MY HAND. HER PCG WAS RUBBING HER FEET, PT ASKED IF I WOULD PRAY FOR HER-WHICH I DID. WILL CONTINUE TO FOLLOW NEEDED
--- NOTE | 2018-08-21 14:11 | NUR ---
HELPED PATIENT MOVE TO LEFT SIDE. HAS BEEN ON HER BACK FOR ABOUT 2 HOURS. PATIENT TALKING WITH ME. SHE DOESN'T KNOW DATE OR WHERE SHE IS OR WHY.
--- NOTE | 2018-08-21 16:18 | NUR ---
DR KING WAS IN TO SEE PATIENT, UPDATES GIVEN. SON OF PATIENT IN ROOM. PATIENT UP TO CHAIR WITH HELP FROM MYSELF AND CUTTER IN, LOC BERNARDO, USED GAIT BELT. CALL LIGHT IN REACH, IN DIRECT SITE OF NURSES STATION. PATIENT ASKED FOR HOT TEA, GIVEN TO HER.
--- NOTE | 2018-08-21 18:04 | NUR ---
Continues to sit up in the chair with feet elevated. TV on but patient mostly sleeping.
--- NOTE | 2018-08-21 18:38 | NUR ---
DR KING UPDATED ON PATIENT STATUS, DR MCNALLY IN CCU. PATIENT ASSISTED BACK TO BED WITH HELP FROM VALET CASHIER. PATIENT STATES FEELING COLD AND WANTS WARM BLANKETS. TEMP NOW 100.0 AND 1 BLANKET GIVEN.
--- NOTE | 2018-08-21 19:30 | NUR ---
REPORT RECEIVED, PT LYING IN BED APPEARS RESTFUL. HR 115, ELEVATED BP NOTED WILL MONITOR AND GIVE TOM LOPRESSOR.
--- NOTE | 2018-08-21 21:15 | NUR ---
LASIX 20MG IV GIVEN. DR KING IN UNIT AND CHECKING ON PT.
--- NOTE | 2018-08-22 00:15 | NUR ---
PT HAS PUT OUT 1000ML URINE IN 3 HOURS SINCE LASIX WAS GIVEN.
--- NOTE | 2018-08-22 00:30 | NUR ---
OVER THE LAST HOUR THE PTS HR HAS COME UP FROM 110 TO 140'S, PT HAS BECOME INCREASINGLY RESTLESS AND AGITATED, C/O PAIN AT TIMES IN ABDOMEN OTHER TIMES DENYING PAIN. SPO2 HAS GONE DOWN TO 85%, RT IN TO TURN O2 UP. TEMP UP TO 101.2. GAVE PT MORPHINE, NO CHANGE IN VS OR PAIN. CALLED DR KING AND UPDATED, CXR ORDERED AND ORDER GIVEN FOR TYLENOL. WILL GIVE PO TYLENOL.
--- NOTE | 2018-08-22 02:00 | NUR ---
OVERALL PTS VS HAVE IMPROVED AND PT LOOKS MORE CALM AND RESTFUL. HR DOWN TO 100, RR DOWN TO 20'S FROM 40'S AND BP'S DOWN. WILL CONT TO MONITOR.
--- NOTE | 2018-08-22 03:49 | NUR ---
O2 SATURATIONS HAVE IMPROVED, PT HAS BEEN 100% FOR THE LAST HOUR. RT IN TO TURN VAPOTHERM 15L 60% FIO2. PT APPEARS TO BE SLEEPING BUT RESTLESS. HR 80'S, RR 28 AND TEMP 99.9 TEMPORAL.
--- NOTE | 2018-08-22 05:00 | NUR ---
PT CONT TO SLEEP, CAREGIVER IN TO SEE PT, PT REMAINS ASLEEP. VS HAVE CONTINUED TO IMPROVE, RR DOWN, HR DOWN, BPS DOWN AND SPO2 UP. RESP LOOK MORE EVEN AND UNLABORED.
--- NOTE | 2018-08-22 07:13 | NUR ---
SPO2 100%, FIO2 TURNED DOWN TO 50%. PT IS SLEEPY BUT AWAKE, SON AT BEDSIDE. DR ROMERO CALLED AND UPDATED REGARDING EVENTS OF THE NIGHT, NO ORDERS AT THIS TIME, WILL BE IN TO SEE PT.
--- NOTE | 2018-08-22 09:00 | NUR ---
DR ROMERO NOTIFIED OF LAB VALUES H&H, NEW LABS OBTINED FOR TYPE AND CROSS AND TRANSFER TWO UNITS PRBC'S.
--- NOTE | 2018-08-22 09:10 | NUR ---
LAB PRESENT SAMPLE OBTAINED 10MLS WASTED AND 5MLS GIVEN TO LAB. CENTRAL LINE HEPRINIZED AT THIS TIME, FLUSED WITH EASY AND DRAW BACK BLOOD IN ALL THREE PORTS.
--- NOTE | 2018-08-22 09:30 | NUR ---
PT REPOSITIONED AT THIS TIME, FEET ON PILLOW TO GET HEELS OFF THE BED, BOTH ELBOWS ON PILLOWS ALSO AT THIS TIME.
--- NOTE | 2018-08-22 10:09 | NUR ---
DR KING INTO SEE PT AT THIS TIME, NEW ORDERS RECEIVED C/O NAUSEA AT THIS TIME, NEW ORDER FOR ZOFRAN AT THIS TIME. G-TUBE PLACE TO GRAVITY DRAINAGE AT THIS TIME, LIGHT GREEN DRAINAGE NOTED.
--- NOTE | 2018-08-22 10:59 | NUR ---
PT DENIES PAIN, HAS BEEN ASLEEP AND APPEARS TO BE COMFORTABLE. SPO2 DECREASED TO 84% ON 10L'S AT 50%. RT NOTIFIED AND FLOW INCREASED TO 15 AND FIO2 REMAINS AT 50% WITH A SPO2 94%. PT AWAKEN AND ASKE TO TAKE DEEP BREATHS ALSO AT THIS TIME.
--- NOTE | 2018-08-22 12:00 | NUR ---
STARTED UNIT 1 OF PRBC'S AT THIS TIME. PT IS TOLERATING THIS PROCESS SO FAR AT THIS TIME. FAMILY WAS AT THE BEDSIDE AND ALL QUESTION ANSWERED.
--- NOTE | 2018-08-22 14:10 | NUR ---
unit of prbc's completed at this time, pt contioues to be very sleepy today, but does awaken when spoken too. I & O's completed.
--- NOTE | 2018-08-22 14:36 | NUR ---
UNIT 2 OF PRBC'S STARTED AT THIS TIME.
--- NOTE | 2018-08-22 14:38 | NUR ---
I CONNECTED WITH PT'S SON LUANN. HE HAD JUST LEFT FROM VISIT. HE IS CONCERNED ABOUT HIS MOTHER. HE SENSES SHE IS FAILING-AND BELIEVES SHE IS JUST HANGING ON UNTIL THE 18TH-ANNIV OF HER 'S . ENCOURAGED LUANN, WILL FOLLOW NEEDED. SHARED THIS INFO WITH CELINE
--- NOTE | 2018-08-22 15:00 | NUR ---
G-TUBE CLAMPED AND FLUSHED WITH 25MLS OF TAP WATER. PT JAZMYN-WELL.
--- NOTE | 2018-08-22 15:26 | NUR ---
PT FAMILY IS BACK AT THE BEDSDIE AT THIS TIME. PT AWAKE AND TALKING WITH HIM AT THIS TIME.
--- NOTE | 2018-08-22 17:00 | NUR ---
UNIT 2 OF PRBC'S COMPLETE AT THIS TIME. PT GIVEN BEDBATH, AND PARTICAL LINE CHANGE. PT DID NOT TOLERATE HER HEAD BEENING LOWER, THEN PLACED IN A SITTING POSITION. PT DENIES PAIN, ABD DRESSING REMOVED FROM INCISION AND G-TUBE, FRESH GAUGE DRESSING PLACED OVER AND AROUND LEXI DRAIN SITE.
--- NOTE | 2018-08-22 17:47 | NUR ---
LAB SAMPLE OBTAINED VIA WHITE PORT OF CENTRAL LINE, 10MLS WASTED AND 4 MLS SENT TO LAB.
--- NOTE | 2018-08-22 18:27 | NUR ---
PT CAREGIVER FROM HOME IS HERE AT THIS TIME, PT WILL ALLOW HER TO COMPLETE ORAL CARE WHICH SHE WOULD NOT ALLOW THIS OPERATIONS PROCESSOR TO COMPLETE.
--- NOTE | 2018-08-22 19:45 | NUR ---
PT APPEARS RESTFUL AND SLEEPING. VISITOR IN TO SEE PT AND SHE WAKES UP AND TALKS SOME WITH HER BUT IS PRETTY SLEEPY. REQUESTS HER SLEEPING PILLS. DENIES PAIN.
--- NOTE | 2018-08-22 20:15 | NUR ---
IN TO DO ASSESSMENT. LEXI EMPTIED 40ML THICK GREEN/BLACK FLUID. ABD INC MIDLINE ESPINOZA IN PLACE WELL APPROXIMATED. NO SIGNS OF LEAKAGE AT INCISION OR LEXI SITE OF GTUBE SITE. GTUBE REMAINS CLAMPED AT THIS TIME. PT IS ON 15L/50% VAPOTHERM WITH SPO2 90-94%, LUNGS WITH FEW CRACKLES IN BASES, UPPER RHONCHI HEARD THAT CLEARS WITH COUGH. PT HAVING FREQUENT COUGHING WITH SPUTUM PRODUCTION.
--- NOTE | 2018-08-22 22:00 | NUR ---
CAREGIVER DESIRE IN TO SEE PT, PT AWAKENS FOR HER AND ENGAGES WITH HER SOMEWHAT. ORAL CARE DONE, PT HAS BEEN COUGHING UP SOME SPUTUM, HELPED WITH YANKAUER SUCTION. PT DENIES PAIN. STATES SHE JUST WANTS TO GO TO SLEEP. TEMP CHECKED IS 100.6.
--- NOTE | 2018-08-23 00:02 | NUR ---
ASSESSMENT DONE. PT AROUSES AND DENIES PAIN WHEN ASKED THEN BACK TO SLEEP. ASSESSMENT UNCHANGED FROM PREVIOUS. LEXI EMPTIED OF 35ML THCK GREENISH BLACK LIQUID. PT SOMEWHAT RESTLESS IN BED, MOVING LEGS AROUND AT TIMES.
--- NOTE | 2018-08-23 02:27 | NUR ---
PT APPEARS TO BE RESTFUL/SLEEPING. IV LOPRESSOR GIVEN. HR WENT FROM 98 TO 84.
--- NOTE | 2018-08-23 03:30 | NUR ---
PT MOANING, IN TO CHECK ON HER. C/O NAUSEA. DRAINS EMPTIED AND PT BACK TO SLEEP.
--- NOTE | 2018-08-23 06:23 | NUR ---
PT STARTING TO MOAN A BIT, DENIES PAIN BUT C/O NAUSEA. 4MG IV ZOFRAN GIVEN.
--- NOTE | 2018-08-23 07:47 | NUR ---
PT AWAKEN WHILE STAFF WAS CLEANING UP PT ROOM. ASKED FOR DESIRE WHO IS PT'S CAREGIVER AT HOME. TOLD PT MY NAME AND ASKED IF SHE NEEDED ANYTHING "NO" ASKED IF SHE WAS IN PAIN "NO". PT APPEAS TO BE COMFORTABLE.
--- NOTE | 2018-08-23 09:26 | NUR ---
PT C/O CHEST PAIN, AND NAUSEA AT THIS TIME. DR ROMERO AND DR. KING NOTIFIED NO NEW ORDERS AT THIS TIME. PT IS MEDICATED WITH 4MG ZOFRAN IVP AT THIS TIME. PT ALSO WAS GIEN 650MG VIA G-TUBE FOR FEVER.
--- NOTE | 2018-08-23 09:43 | NUR ---
ADMINISTERED PATIENTS AM MEDS. PATIENTS LOPRESSOR WAS NOT GIVEN VITAL SIGNS WERE NOT IN RANGE. PATIENT COMPLAINED OF NAUSEA AND CHEST PAIN. PROVIDER WAS CALLED. ADMINISTERED ZOFRAN FOR NAUSEA AND TYLENOL FOR LOW GRADE FEVER.
--- NOTE | 2018-08-23 09:49 | NUR ---
PT SON LUANN HERE AT THIS TIME, ALL QUESTIONS ANSWERED A THIS TIME. PT IS MORE ALLERT AND NOT CONFUSED TODAY. PT IS INTERACTIVE WITH STAFF TODAY.
--- NOTE | 2018-08-23 11:00 | NUR ---
white port was able to obtain blood after 120 minutes with alteplase. Then flushed with 10mls f NS and heperin locked. Dr Mooney into see pt, Pt will be transfered to MS unit at some point today.
--- NOTE | 2018-08-23 12:02 | NUR ---
family is at bedside at this time.
--- NOTE | 2018-08-23 12:41 | NUR ---
PT WAS LAYING IN BED, VISITING WITH A FRIEND. PT PLEASANT, REACHED OUT HER HAND TO HOLD MINE. PT REQUESTED PRAYER, WILL FOLLOW NEEDED
--- NOTE | 2018-08-23 12:53 | NUR ---
STUDENT NURSE KIMBERLYN FROM [facility] GAVE REPORT TO MS NURSE, ALL QUESTIONS ANSWERED AT THIS TIME. PT TRANSFERED VIA BED WITH NURSE, DEVONTE AND RT PRESENT. ALL PERSONAL BELONGINGS SENT, AND MEDICATIONS AT THIS TIME.
--- NOTE | 2018-08-23 13:11 | NUR ---
PT ARRIVED TO FLOOR VIA STRETCHER FROM CCU. PT IS DROWSY BUT ORIENTED X3. VAPOTHERM O2 IN PLACE AT 15LPM, 50% PIO2. TPN INFUSING INTO BROWN LUMEN AT A RATE OF 63 ML/HR. LEXI DRAIN WITH SMALL AMMOUNT OF GREEN DRAINAGE PRESENT. MIDLINE INCISION WITH 11 ESPINOZA PRESENT, NO REDNESS, SWELLING OR WARMTH FELT. INCISION WELL APROXIMATED. BOWEL TONES ACTIVE. PT DENEIS PAIN AT THIS TIME. PT REPORTS LAST FLATUS WAS ON 08/22/18. J-TUBE PRESENT AND CLAMPED AT THIS TIME. PT DENEIS BLOATED FEELING. ORIENTED TO ROOM. CALL LIGHT IN REACH. DENEIS NEEDS AT THIS TIME. VSS.
--- NOTE | 2018-08-23 14:32 | NUR ---
PATIENT RESTING IN BED. I&O DONE. VITAL SIGNS DONE BY RN. ICE WATER GIVEN. CALL LIGHT WITHIN REACH. NO OTHER NEEDS AT THIS TIME
--- NOTE | 2018-08-23 15:00 | NUR ---
PT LYING IN BED WITH EYES CLOSED, RESPIRATION 20. TPN INFUSING WNL, ABX INFUSING WNL. PT WAKES TO VERBAL STIMULI THEN QUICKLY FALLS BACK ASLEEP. PT DENEIS PAIN. CALL LIGHT IN REACH. 15L VASOTHERM IN PLACE.
--- NOTE | 2018-08-23 17:34 | NUR ---
PATIENT RESTING IN BED. CAREGIVER IN ROOM. VITAL SIGNS DONE. I&O DONE BY RN. CALL LIGHT WITHIN REACH. NO OTHER NEEDS AT THIS TIME
--- NOTE | 2018-08-23 17:41 | NUR ---
TPN AND LIPIDS STARTED AND VERIFIED BY 2ND RN AICHA. CAREGIVER IN TO DO MOUTH CARE. PT SOMEWHAT AWAKE AND ANSWERING QUESTIONS AT THIS TIME.
--- NOTE | 2018-08-23 18:23 | NUR ---
PT CAME FROM CCU TODAY, VERY DROWSY ALL THIS SHIFT. TPN AND LIPIDS INFUSING WNL, CENTRAL LINE TO [facility] WITH BLOOD RETURN. J-TUBE CLAMPED. PT DENIES BLOATING, NAUSEA, OR PAIN. MIDLINE C/D/I WITH 11 ESPINOZA. PO INTAKE OK WITH LOW FIBER AND ENSURES. ORAL CARE, TURN Q2 D/T PT NOT MOVING IN BED. PT IS ORIENTED X3 THOUGH. CARE CONFRENCE FOR TALKS ABOUT COMFORT CARE. JARAMILLO WITH LASIX. CRACKLES IN BASES OF LUNGS. LEXI DRAIN WIHT GREEN BILE COLORED CRAINAGE. SMALL IN QUANTITY.
--- NOTE | 2018-08-23 20:06 | NUR ---
PT AOX3. SLEEPLY. ABLE TO COMMUNICATE NEEDS, NO C/O PAIN. FAMILY AT BED SIDE. CENTRAL LINE INTACT. MIDLINE INSICION CLEAN DRY INTACT. LEXI DRAINING GREEN BILE. PEG CLOSED NOT DRAINING, INSERTION SITE WNL. RESTING
--- NOTE | 2018-08-23 21:20 | NUR ---
VOLLEYBALL REFEREE ROUNDING, PT RESTING IN BED WITH EYES CLOSED. PRIMARY RN IN ROOM. CALL LIGHT IN PT REACH.
--- NOTE | 2018-08-23 23:01 | NUR ---
pt resting in bed. call light in reach. offered po fluids. pt reposrt no pain at this time. adjusted poistion for comfort and to maintain good skin hygiene. pt on 15L high flow NC o2 95%
--- NOTE | 2018-08-24 01:07 | NUR ---
pt lying in bed talking to self. entered room, pt request something to eat. assisted her with 3 bites of jello. repositioned to more lying positon for comfort. pt denies pain at this time. call light in reach
--- NOTE | 2018-08-24 04:28 | NUR ---
PT RESTED OFF AND ON ALL NIGHT. TPN AND LIPIDS INFUSING, TRIPLE LUMEN CENTRAL LINE WNL TO LEFT UPPER CHEST, GOOD BLOOD RETURN. DENIES PAIN OR NAUSEA FOR SHIFT. REQUESTED SNACK, TOLERATED JELLO WELL. MIDLINE IONCISION WITH 11 ESPINOZA EDGES WELL APPROXIMATED NO DRESSING. LEXI DRAIN INTACT GREEN DRAINAGE APPROPRIATE OUTPUT, J-TUBE FOR STOMACH VENTING CLAMPED, NO VENTING ON THIS SHIFT. JARAMILLO IN PLACE AND DRAING YELLOW CLEAR URINE QUALITY SUFFICENT. LUNG SOUNDS CRACKELS IN BASE. HEART REATE 102-101.
--- NOTE | 2018-08-24 06:03 | NUR ---
BLUE PORT CENTRAL LINE NOT FLUSHING.
--- NOTE | 2018-08-24 06:43 | NUR ---
AFTER NUMEROUS ATTEMPS BY 3 NURSES WERE UNABLE TO DRAW BLOOD OR FLUSH BLUE PORT. CATHFLO USED. PROCEDURE EXPLAINED TO PT, COOPERATIVE
--- NOTE | 2018-08-24 07:31 | NUR ---
RECEIVED REPORT FROM COMPLIANCE ADVISOR RN. PT AWAKE IN BED DRINKING COFFEE. DENIES PAIN, N/V, OR ABDOMINAL DISCOMFORT. TPN INFUSING IN BROWN LUMEN. MERREM INFUSING IN WHITE LUMEN WNL. CALL LIGHT IN REACH. DENIES FURTHER NEEDS.
--- NOTE | 2018-08-24 08:10 | NUR ---
ALTEPLACE IN BLUE LUMEN. LINE ABLE TO RETURN BLOOD AFTER [address] 10 ML OF BLOOD PULLED AND DISGAURDED. 20ML NS FLUSHED IN LINE. FLUSHED WNL.
--- NOTE | 2018-08-24 12:13 | NUR ---
ROUNDED WITH DR ROMERO. PLAN OF CARE DISCUSSED. DAUGHTER AND PATIENT PARTICIPATED AND ARE AGREEABLE TO PLAN OF CARE. ORDERS TO CONTINUE TPN PREVIOUS DAY. TRY AND TITRATE O2 TO NC FROM HIGH FLOW. QUESTIONS AND CONCERNS ADRESSED.
--- NOTE | 2018-08-24 14:23 | NUR ---
PATEINT WAS IN BED, DAUGHTER VISITED FOR A LITTLE WHILE, SHE ASKED FOR SOME SIPS OF SEVEN UP AMND IS CURRENTLY RESTING
--- NOTE | 2018-08-24 18:00 | NUR ---
PT SEEMS CONFUSED. DOESN'T WANT NURSE TO LEAVE. ASKING FOR FAMILY TO TAKE HER HOME. REORIENTS WELL. TPN INFUSING WNL. 3L NC IN PLACE CPOX AT 95%. LEXI DRAIN DRAINAGE HAS INCREASED. OUTPUT THIS SHIFT IS 125. RESPIRAITONS EQUAL AND NONLABORED. CALL LIGHT IN REACH.
--- NOTE | 2018-08-24 19:43 | NUR ---
pt awakse with family at [facility] no complint of pain at this time. lung sound crackels in the base, skin clean anad dry. nc 3l @98%. Ronnie draining green 10ml. floey clear yellow urine. pt has enuser at bedise. Central line brown port TPN, blue and white port SL
--- NOTE | 2018-08-24 19:47 | NUR ---
fmily at bedside
--- NOTE | 2018-08-24 23:30 | NUR ---
DRESSING CHANGE COMPLETE ON LEXI DRAIN. 150ML OUT. BEDDING AND GOWN CHANGE COMPLETED
--- NOTE | 2018-08-25 00:49 | NUR ---
PT. IN BED. LEXI DRAIN EMPTIED. PT RESTLESS UNCOVERING FEET AND TRYING TO GET OUT OF BED, PULLING ON LEXI DRAIN. C/O PAIN 09/15. MEDICATED. CALL LIGHT IN REACH. BED ALARM ON
--- NOTE | 2018-08-25 02:13 | NUR ---
PT ABX COMPLETE. SL BLUE PORT.
--- NOTE | 2018-08-25 04:27 | NUR ---
FAMILY AT BED SIDE FOR EARLY EVENING. PT PULLING ON CENTRAL LINE AND LEXI DRAIN. PT RESTLESS, AND SLIGHTLY DISAGREEABLE. BED ALARM ON. TPN INFUSING IN BROWN PORT. BLUE AND WHITE PORT FLUSHED WITH 10ML AND SALINE LOCKED. LEXI DRAINING INCREASED SIGNIFICANTLY. ELLA UO QS. AFTER TYLENOL PT. RESTED MUCH MORE SOUNDLY
--- NOTE | 2018-08-25 07:27 | NUR ---
RECEIVED REPORT FROM MANHOLE STRIPPER RN. PT IN BED WITH EYES CLOSED. CPOX IN PLACE. SATURATIONS 95% ON 3L NC. MERREM INFUSING. TPN INFUSING AT CORRECT RATE. RESPIRATIONS EQUAL AND NONLABORED. CALL LIGHT IN REACH.
--- NOTE | 2018-08-25 08:02 | NUR ---
PAtient is asleep, she did not wake much when this cna2 tried to wake her, she said she did not want anything for breakfast, this director of occupational therapy updated the board, and will update her nurse
--- NOTE | 2018-08-25 09:55 | NUR ---
PT WITH EYES CLOSED RESTING, AWAKES TO VERBAL STIMULI. PT IS SOMEWHAT CONFUSED BUT REORIENTS WELL. PT SHANGED TO RA. CPOX AT 90%. HEART RATE IN 80'S. RESPIRATIONS ARE EQUAL AND NONLABORED. PT IS DENIES ANY PAIN AT THIS TIME. FAMILY AT BEDSIDE. ROUNDED WITH DR ROMERO AROUND 0830. PLAN OF CARE DISCUSSED WITH PT. THIS RN UPDATED FAMILY WHEN THEY ARRIVED. MEDICAITONS ADMINISTERED IV. ENSURE PROVIDED TO PT. PT TOO TIRED TO DRINK AT THIS TIME. WILL CONT TO TRY AND ENCOURAGE. CENTRAL LINE WITH GOOD BLOOD RETURN. LEXI DRAIN EMTIED WITH 37CC GREEN DRAINAGE OUT. MIDLINE WELL APROXIMATED WITH NO S/SX OF LOCALIZED INFECTION. CALL LIGHT IN REACH. HOB ELEAVATED TO [address] DENIES FURTHER NEEDS.
--- NOTE | 2018-08-25 11:57 | NUR ---
PT DENIES PAIN. PT AGREEABLE TO GET UP TO CHAIR TODAY. CPOX IN PLACE. PT ON RA. NO NEW DRAINAGE FROM LEXI DRAIN. PT WITH ENRUSE AT BEDSIDE. TOLERATING WELL WIHT NO N/V. TV ON. PT DENIES FURTHER NEEDS.
--- NOTE | 2018-08-25 12:50 | NUR ---
1PA FROM CHAIR TO BED. PT REPORTS BEING TIRED AND WANTING TO REST. DENIES PAIN. NO NEW DRAINAGE IN LEXI DRAIN. DAUGHTER AT BEDSIDE. CALL LIGHT IN REACH.
--- NOTE | 2018-08-25 15:03 | NUR ---
PT COMPLAINING OF SOB AND CHEST PAIN. VITAL SIGNS TAKEN, B/P 169/62. HEART RATE 98. RESPIRATIONS 24, TEMP 98.8. MORPHINE 2MG ADMINISTERED, LOPRESSOR 2.5MG ADMINISTERED. O2 SATURATION AT 88% ON RA. 2L NC PLACED. SATURATIONS 100% NOW. PT STABLE AND RESTINFG IN BED NOW, WILL CONT TO MONITOR.
--- NOTE | 2018-08-25 15:30 | NUR ---
DILAUDID ADMINISTERED. PT REPORTS NAUSEA FEELING. ZOFRAN IV ADMINSITERED. WILL CONTINUE TO MONITOR. FAMILY AT BEDSIDE.
--- NOTE | 2018-08-25 16:10 | NUR ---
PT REASSESSED. REPORTS NAUSEA AND PAIN ARE GONE. TPN HUNG AND DOUBLE CHECKED BY AICHA BERGER. CALL LIGHT IN REACH
--- NOTE | 2018-08-25 16:20 | NUR ---
PT REASSESSED. PAIN HAS NOT DECREASED, DR ROMERO UPDATED: NO LEXI DRAINAGE, VITAL SIGNS, MEDICATIONS GIVEN, 2ML RESIDUAL FROM PEG TUBE, ABDOMINAL PAIN, ORDERES RECEIVED BY TELEPHONE: DILAUIDID 0.3-1.5MG IV Q2P, DC MORPHINE.
--- NOTE | 2018-08-25 18:42 | NUR ---
PT HAD OKAY DAY, DILAUDID ORDERED FOR PAIN, TPN AT SAME RATE. CPOX, 2LNC. PT COMPLAINED OF CHEST, ABDONIAL PAIN TODAY. SOME NAUSEA. ZOFRAN GIVEN. RESIDUAL CHECKED, 2MLS. LEXI WITH 37ML OUT THIS SHIFT.
--- NOTE | 2018-08-25 19:03 | NUR ---
CHARGE NURSE REPORT RECEIVED FROM LEONARDO. PT IN BED, WITH EYES CLOSED, O2 IN PLACE. TPN INFUSING PER ORDER.
--- NOTE | 2018-08-25 20:42 | NUR ---
COOP WITH ASSESSMENT, O2 WEANED OFF TO 2L AT 1914, CONT PULSE OX IN PLACE, SATS 96% AT 2L. CL L SIDE PATENT, TNP INFUSING W/O PROBLEMS. 3 PORTS PATENT. MIDLINE ABD INCISION WITH ESPINOZA, WELL APRROX EDGES, DRY, HEALING GRACY. PEG TUBE, CMAPLED. F/C PATENT, DRAINING DARK YELLOW URINE. LEXI DRAININ GREEN BILE. SMALL AMOUNTS. PT ALERT TO NAME AND PLACE. CBG 113. REPOSITIONED IN BED, SCDS IN PLACE.
--- NOTE | 2018-08-25 23:00 | NUR ---
CLUSTER CARE WITH RN LALIT, REPOSITIONED PATIENT, V/S AND I&O DONE AND CHARTED.
--- NOTE | 2018-08-26 00:54 | NUR ---
REPOSITIONED IN BED, O2 2L NC IN PLACE, HAD TAKEN NC OFF, BACK ON. CPOX INPLACE. TPN, ABX INFUSING W/O PROBLEMS. SCDS INPLACE
--- NOTE | 2018-08-26 02:40 | NUR ---
RESTING,O2 2L NC, CONT PULSE ON IN PLCAE SATS 96% READING, SCDS INPLACE, TURNS SELF IN BED, BED ALARM ON, RAILS UP. CALL LIGHT AT BEDSIDE
--- NOTE | 2018-08-26 04:53 | NUR ---
HAS SLEPT MOST OF THIS SHIFT, RESTLESS IN BED, TURNS SELF, NO MOANING OR S/SX PAIN NOTED. O2 DECREASED TO 1L NC, CPOX AT 96%. MIDLINE ABD INCISION WITH ESPINOZA INPLACE, EDGES WELL APPROXIMATED, DRY. NO BM SINCE 08/21 WILL NOTIFY MD NEED FOR BOWEL CARE. GT CLAMPED. NO C/O ABD PAIN. F/C INTACT DRAINING TEA COLORED URINE. SCDS INPLACE. CALL LIGHT WITHIN HANDS REACH
--- NOTE | 2018-08-26 07:10 | NUR ---
REPORT RECEIVED FROM CELINE COHN. PT ASLEEP IN BED WITH TPN AND AB RUNNING. LALIT STATES SHE SLEPT MOST OF NIGHT AND DID NOT NEED PRN PAIN MEDICATION.
--- NOTE | 2018-08-26 07:45 | NUR ---
DR ROMERO IN ROOM WITH FAMILY. THEY HAD QUESTIONS REGARDING CARE CONFERENCE TODAY AND WHERE TO GO FROM HERE. DR ROMERO ANSWERED QUESTIONS. FAMILY GIVEN MORE CHAIRS AND INSTRUCTED TO CALL IF THEY FELT PT WAS PAINFUL OR THEY NEEDED ANYTHING. PT STATES SHE IS NOT IN PAIN.
--- NOTE | 2018-08-26 09:30 | NUR ---
SPOKE WITH PATIENT, DAUGHTER BERKLEY AND SON YUE IN ROOM. PLAN IS TO HAVE CARE CONFERENCE TODAY AT 1PM TO DISCUSS PLAN GOING FORWARD FOR DISHCHARGE ISSUES. PATIENT AWAKE, DENIES PAIN BUT STATES SHE IS VERY WEAK.
--- NOTE | 2018-08-26 09:36 | NUR ---
PATIENT REMAINS ON TPN. THERE WILL BE A CARE CONFERENCE AT 1 PM OR SO TODAY WITH DR. ROMERO. SON AND DAUGHTER IN ROOM NOW. THEY WANT TO WEIGH THEIR OPTIONS BEFORE DECIDING ON COMFORT CARE OR EVEN FEEDING HER WITH BOLUS FEEDS. WILL REMAIN AVAILABLE FOR NUTRITION INTERVENTION.
--- NOTE | 2018-08-26 10:19 | NUR ---
Pt resting in her bed with family at the bedside. Pt denies any pain or discomfort at this time. Family denies any needs.
--- NOTE | 2018-08-26 11:00 | NUR ---
SPOKE WITH DR ROMERO IN CCU STAFF AREA. HE STATES THAT PATIENTS FAMILY IS THINKING OF DISCONTINUING AGGRESSIVE TREATMENT AND PERHAPS GOING TO COMFORT ONLY MEASURES. HE STATES HE WILL BE UNABLE TO ATTEND 1PM CARE CONFERENCE, BUT HE IS IN AGREEMENT WITH THIS AND WILL ACCOMODATE THEM IF THIS IS DECIDED.
--- NOTE | 2018-08-26 12:10 | NUR ---
PT RESTING IN BED, DAUGHTER BERKLEY AT BS. PT STATED SHE DIDN'T SLEEP WELL AND WOULD LIKE TO REST SOME TODAY. BERKLEY HAS TRAVELLED FROM [place], AND HAD SOME DIFFICULTY GETTING HERE FROM [place]. SHE AT TIMES WOULD GET SOMEWHAT EMOT- IONAL. BERKLEY TRIED TO HIDE IT FROM PT. PT REQUESTED PRAYER, WILL FOLLOW PT NEEDED
--- NOTE | 2018-08-26 12:48 | NUR ---
Pt's family remains at bedside. Pt sleeping at this time.
--- NOTE | 2018-08-26 13:04 | NUR ---
CARE CONFERENCE WITH GUS CASE MANAGEMENT AND LAN ANALYST BECKY. PATIENT SON AND DAUGHTER IN ROOM FOR CARE CONFERENCE. GUS DISCUSSING WITH PT OPTIONS FOR CARE. PT VERBALIZED NO NURSING HOMES. PT VERBALIZED SHE KNOWS WHAT HOSPICE IS. GUS DISCUSS OPTIONS WITH FAMILY AT BEDSIDE. GUS DISCUSSED PT COULD GO ON COMFORT MEASURES FOR NOW AND SEE HOW SHE DOES. ALSO POSSIBLE START SETTING UP HOSPICE PLANS FOR HOME IF FAMILY DECIDES TO MOVE HER HOME. THIS IS WHAT FAMILY VERBALIZED WANTING AT THIS TIME.
--- NOTE | 2018-08-26 13:29 | NUR ---
CARE CONFERENCE MET WITH PATIENT, DAUGHTER BERKLEY, SON YUE, VICE PRESIDENT QUALITY IMPROVEMENT LEONARDO. PATIENT WAS AWAKE, ORIENTED TO PERSON AND PLACE. PATIENT IN VERY WEAKENED STATE AND DRIFTS OFF FROM TIME TO TIME. SHE WAS ABLE TO FOLLOW CONVERSATION AND SEEMED TO ANSWER APPROPRIATELY WHEN NEEDED. DISCUSSED HER HEALTH STATUS AND SHE DID SAY SHE DOES NOT WANT FURTHER OPERATIONS. SHE AND HER FAMILY INDICATE SHE DOESN'T WANT TO CONTINUE AGGRESSIVE TREATMENTS SUCH ARTIFICIAL FEEDINGS, MEDICINES TO PROLONG SUFFERING. SHE STATES QUITE CLEARLY SHE WOULD LIKE TO "JUST GO HOME". WE DISCUSSED HOME WITH HOSPICE AND WHAT THAT WOULD ENTAIL. FAMILY AND SHE AGREE SHE WOULD LIKE TO GO TO COMFORT CARE HERE FOR NOW STATING THAT THEY ARE AFRAID SHE MIGHT NOT TOLERATE THE RIDE HOME, EVEN. WE DISCUSSED THAT HOSPICE COULD TAKE A DAY OR MORE TO ARRANGE IF THEY DECIDE ON THIS AND THAT SHE CAN CHOOSE SYMPTOM CONTROL AND COMFORT MEDICATIONS ONLY HERE FOR NOW. THIS IS WHAT PATIENT, SON AND DAUGHTER WOULD LIKE. PATIENT VERY REFLECTIVE, STATING "I WISH GOD WOULD JUST LET ME GO". ASKED IF PASTORAL CARE SHOULD COME IN, THEY STATED THAT HE WAS JUST HERE AND THEY ARE FINE FOR NOW. BOTH HER CHILDREN STATE HER OTHER SON IS OUT OF STATE RIGHT NOW, BUT THAT HE IS IN AGREEMENT WITH THIS DECISION. PATIENT STATES SHE WANTS TO REST. PATIENT REQUESTS DRINK OF "7UP" AND WAS ABLE TO TAKE PO WITH HELP. FAMILY WANTS TO GO AHEAD WITH COMFORT ONLY CARE AT THIS TIME. STAFF WILL CONTACT DR ROMERO TO LET HIM KNOW OF NEEDED ORDERS.
--- NOTE | 2018-08-26 14:08 | NUR ---
PT DECLINES BEDBATH AT THIS TIME. STATED THAT SHE WANTED TO WAIT TO MOVE AND GET CLEANED UP UNTIL HER PAIN WAS MORE MANAGEABLE.
--- NOTE | 2018-08-26 14:52 | NUR ---
TALKED TO DR ROMERO REGARDING COMFORT CARE ORDER SET. READ THE ORDERS TO AND HE ORDERED THE ONES HE WANTED AND STATED HE WOULD SIGN THE ORDERS ON ARRIVAL TO HOSPITAL EITHER THIS EVENING OR TOMORROW MORNING. FAXED ORDER SET TO PHARMACY AND CALLED BRANDON REGARDING TITRATING TPN TO OFF. SHE SAID TO TURN IT DOWN TO HALF AND THEN RUN IT UNTIL IT IS EMPTY. TPN TURNED DOWN TO 31.5 ML/HR.
--- NOTE | 2018-08-26 15:13 | NUR ---
[facility] ORDER RECIEVED TO DC, CURRENT INFUSION STOPPED BEFORE IT WAS COMPLETED. PT SLEEPING AT THIS TIME.
--- NOTE | 2018-08-26 15:20 | NUR ---
Pt sleeping, sat 94% on 1l via nc.
--- NOTE | 2018-08-26 15:30 | NUR ---
Pt is now on comfort care and is laying in her bed an she appears comfortable at this time. Afternoon assessment was not done as to not interrupt her and her family which are at the bedside at this time.
--- NOTE | 2018-08-26 16:33 | NUR ---
PT SLEEPING AT THIS TIME. PT'S FAMILY REMAIN AT BEDSIDE.
--- NOTE | 2018-08-26 17:30 | NUR ---
Pt appears comfortable and she denies pain at this time. Family states they belive she is comfortable. Pt declined to be turned stating, "I'm fine". TPN continues running at 31.5 cc/hr.
--- NOTE | 2018-08-26 17:50 | NUR ---
PATIENT IN BED. FAMILY IN ROOM. I&O DONE. CALL LIGHT WITHIN REACH. NO OTHER NEEDS AT THIS TIME
--- NOTE | 2018-08-26 18:19 | NUR ---
PT WAS CHANGED TO COMFORT CARE THIS AFTERNOON. PT IS BEING WEANED OFF OF HER TPN AT THIS TIME. PT DID APPEAR UNCOMFORTABLE FOR A SHORT TIME THIS AFTERNOON AND WAS MEDICATED FOR PAIN WHICH SEEMED TO WORK WELL. PT'S FAMILY REMAINS AT BEDSIDE THE INTIRE DAY. CENTRAL LINE DRESSING CHANGED TODAY.
--- NOTE | 2018-08-26 18:45 | NUR ---
PER THE FAMILY THE PT IS HAVING A LITTLE BIT OF AGATATION. PT WAS MEDICATED WITH ATIVAN.
--- NOTE | 2018-08-26 18:56 | NUR ---
TPN INFUSION COMPLETE, LINE FLUSHED ORDERED ONCE IT WAS COMPLETE.
--- NOTE | 2018-08-26 19:00 | NUR ---
CHARGE ROUNDING DONE. PATIENT RESTING IN BED. PRIMARY RN IN ROOM. NO CONCERNS AT THIS TIME.
--- NOTE | 2018-08-26 19:15 | NUR ---
RECEIVED REPORT FROM DAY SHIFT RN. PATIENT IS RESTING IN BED. FAMILY IS AT THE BEDSIDE. PATIENT APPEARS RESTLESS. PATIENTS FAMILY EDUCATED TO NOTIFY STAFF IF THEY FEEL SHE CAN'T REST. FAMILY VERBALIZES UNDERSTANDING. NO NEEDS NOTED.
--- NOTE | 2018-08-26 19:45 | NUR ---
PATIENT ASSES COMPLETED. PATIENT GIVEN PRN ATIVAN PER ORDER FOR RESTLESSNESS PER FAMILY REQUEST. ORAL CARE COMPLETED. NO NEEDS NOTED.
--- NOTE | 2018-08-26 20:13 | NUR ---
PATIENT GIVEN PRN ATIVAN TO TITRATE TO THE MAX DOSE PER FAMILIES RESQUEST. PATIENTS FACE WASHED. PATIENT PROVIDED WITH COOL RAG. NO FURTHER NEEDS NOTED. CALL LIGHT IN REACH.
--- NOTE | 2018-08-26 21:14 | NUR ---
PATIENT GIVEN PRN PAIN MEDICATION PER ORDER AT REQUEST OF FAMILY. PATIENT IS RESTLESS IN BED AND CRYING OUT. PATIENT REPOSTIIONED IN BED. PATIENTS FAMILY DENIES ANY NEEDS. CALL LIGHT IN REACH.
--- NOTE | 2018-08-26 21:57 | NUR ---
PATIENT IS RESTING IN BED. PATIENT APPEARS TO BE MORE COMFORTABLE. PATIENT CONTINUES TO TALK, AND REACH FOR THINGS. PATIENT DOES NOT RESPOND TO QUESTIONING. PATIENTS FAMILY REMAINS IN THE ROOM. PATIENTS FAMILY DENIES ANY NEEDS AT THIST TIME. CALL LIGHT IN REACH.
--- NOTE | 2018-08-26 22:21 | NUR ---
PATIENT IS RESTING IN BED. PATIENT APPEARS COMFORTABLE. PATIENT IS MAKING NOISES BUT IS NOT MOVING ARMS OR LEGS. PATIENTS FAMILY REMAINS IN THE ROOM. PATIENTS FAMILY DENIES ANY NEEDS. CALL LIGHT IN REACH.
--- NOTE | 2018-08-27 00:06 | NUR ---
PATIENT IS RESTING IN BED. PATIENT APPEARS TO BE UNCOMFORTABLE. PATIENT IS MOANING, AND RESTLESS IN BED. PATIENT GIVEN PRN MEDICATION PER ORDER. FAMILY PROVIDED WITH EMOTIONAL SUPPORT. PATIENTS FAMILY EDUCATED ON USE OF MEDICATION TO ASSIST W/ASSISTING PATIENTS COMFORT. FAMILY VERBALIZES UNDERSTANDING.
--- NOTE | 2018-08-27 00:44 | NUR ---
PATIENTS DAUGHTER CAME TO RN STATION TO ALERT STAFF THAT HER MOTHER WAS RESTLESS AND AGITATED. PATIENT GIVEN PRN MEDICATION PER FAMILY REQUEST. PATIENT IS RESTING IN BED IS MOANING ANG RESTLESS. PATIENTS FAMILY DENIES ANY NEEDS. CALL LIGHT IN REACH.
--- NOTE | 2018-08-27 01:48 | NUR ---
PATIENT GIVEN PRN MEDICATION FOR AGITATION PER FAMILY REQUEST. PATIENT CONTINUES TO REST IN BED. PATIENTS FAMILY IS AT THE BEDSIDE. PATIENTS FAMILY DENIES ANY NEEDS. CALL LIGHT IN REACH.
--- NOTE | 2018-08-27 02:50 | NUR ---
PATIENT GIVEN PRN ATIVAN PER PATIENT FAMILY REQUEST FOR AGITATION. PATIENTS FAMILY DENIES ANY FURTHER NEEDS. CALL LIGHT IN REACH.
--- NOTE | 2018-08-27 04:15 | NUR ---
PATIENT IS RESTING IN BED WITH EYES CLOSED, RR 28. PATIENT APPEARS COMFORTABLE. PATIENTS FAMILY REMAINS IN THE ROOM AND ASLEEP IN THE CHAIR AND ON THE COUCH. CALL LIGHT IN REACH.
--- NOTE | 2018-08-27 05:27 | NUR ---
PATIENTS JARAMILLO EMPTIED. LEXI EMPTIED. PATIENTS FAMILY IS IN THE ROOM. PATIENTS FAMILY DENIES ANY NEEDS. PATIENT IS RESTING IN BED WITH EYES CLOSED. PATIENTS BREATHING IS UNEVEN AND UNLABORED, RR 25. PATIENT APPEARS TO BE RESTING COMFORTABLY. CALL LIGHT IS WITHIN REACH.
--- NOTE | 2018-08-27 05:56 | NUR ---
PATIENT STRUGGLED WITH COMFORT AT THE BEGINNING OF THE SHIFT. PATIENT HAS BEEN GIVEN MULTIPLE PRN MEDICATIONS TO ASSIST WITH COMFORT. PATIENT HAS JARAMILLO IN PLACE, OUPUT HAS DECREASED OVER THE SHIFT. PATIENT HAS LEXI IN PLACE WITH MINIMAL OUPUT. PATIENT HAS MID ABD INSICION C/D/I. PATIENT HAS CENTRAL LINE IN PLACE THAT IS HEP-LOCKED WHEN NOT IN USE. PATIENT IS NOT RESPONSIVE TO QUESTIONING. PATIENT ONLY MOANS AND BECOMES RESTLESS WHEN UNCOMFORTABLE. PATIENT DOES NOT OPEN EYES.
--- NOTE | 2018-08-27 07:33 | NUR ---
WHILE RECEIVING REPORT THE PT'S DAUGHTER (ANTONELLA) STATES THE PT NEEDS TO BE SEEN. THE PT WAS NOT BREATHING AND NO HEART BEAT HEARD AT 0726. DR JOHN, CASINO ACCOUNTANT, TELE RN CARE AND DR ROMERO NOTIFIED. THE PT'S SON (YUE) AND DAUGHTER (ANTONELLA) REMAIN AT THE BEDSIDE.
--- NOTE | 2018-08-27 09:58 | NUR ---
HOME HERE TO TAKE THE PT. CENTRAL LINE AND JARAMILLO REMOVED PER PROTOCOL.
--- NOTE | 2018-08-27 10:54 | NUR ---
I WAS NOTIFIED BY CELINE FENTON THAT PT HAD JUST PASSED AND THAT FAMILY WAS IN . SON YUE AND DAUGHTER BERKLEY WERE PRESENT AND HAD BEEN WITH PT DURING THE NIGHT AND WITH HER WHEN SHE PASSED. SHARED MY HEART FELT SYMPATHYS', OFFERED A PRAYER AND GAVE COMFORT TO FAMILY. THEY BOTH BEGAN TO SHARE WITH ME THEIR FAVORITE MEMORIES OF MOM-THEY BEGAN TO SMILE AND REMEMBER BETTER DAYS. YUE STATED THAT [employer] IS TO HANDLE ARRANGEMENTS AND PT IS TO BE CREMATED AND INURNMENT WITH PT'S . FAMILY IS NOT SURPRISED AT PT'S PASSING-YESTERDAY WAS 5TH ANNIV OF PT'S 'S PASSING. MADE NOTIFICATION AT YUE'S REQUEST AND LET FAMILY HAVE A MOMENT. CALLED [employer] WHEN THEY WERE READY, THEY CHOSE TO NOT BE PRESENT. FAMILY TOOK PT'S FEW BELONGINGS. GAVE A FEW LAST MINUTE SUGGESTIONS. YUE WILL CONTACT [employer]. PLACED PASSAGE QUILT ON PT PER DEPT POLICY. FAMILY SEEMED PLEASED, ESCORTED BODY OUT. GOD BLESS THEM
== END 2018-08-27 07:26 | DRG 327 ==
LOC: ED 10:42 → MS 10:43 → CCU 17:44 → MS 17:44 → DSVR 08-15 16:03 → CCU 08-15 22:51 → MS 08-23 13:00
PROVIDERS: ADMIT Surgery
PROC: 0FT40ZZ Resection of Gallbladder, Open Approach (ICD-10-PCS; 2018-08-15)
PROC: 3E0T3BZ Introduction of Anesthetic Agent into Peripheral Nerves and Plexi, Percutaneous Approach (ICD-10-PCS; 2018-08-15)
PROC: 0DB80ZZ Excision of Small Intestine, Open Approach (ICD-10-PCS; principal; 2018-08-15 13:00)
PROC: 0D9600Z Drainage of Stomach with Drainage Device, Open Approach (ICD-10-PCS; 2018-08-15 13:00)
PROC: 0DN80ZZ Release Small Intestine, Open Approach (ICD-10-PCS; 2018-08-15 13:00)
PROC: 02HV33Z Insertion of Infusion Device into Superior Vena Cava, Percutaneous Approach (ICD-10-PCS; 2018-08-19)
DX: K56.52 Intestinal adhesions [bands] with complete obstruction (principal); J96.11 Chronic respiratory failure with hypoxia; M31.9 Necrotizing vasculopathy, unspecified; K81.0 Acute cholecystitis; E46 Unspecified protein-calorie malnutrition; K63.2 Fistula of intestine; I47.1 Supraventricular tachycardia; K50.90 Crohn's disease, unspecified, without complications; Z68.1 Body mass index [BMI] 19.9 or less, adult; G89.18 Other acute postprocedural pain; I10 Essential (primary) hypertension; I48.0 Paroxysmal atrial fibrillation; Z51.5 Encounter for palliative care; I73.9 Peripheral vascular disease, unspecified; F17.210 Nicotine dependence, cigarettes, uncomplicated; E87.6 Hypokalemia; E83.51 Hypocalcemia; J84.10 Pulmonary fibrosis, unspecified; J47.9 Bronchiectasis, uncomplicated; Z66 Do not resuscitate; Z79.891 Long term (current) use of opiate analgesic; Z79.899 Other long term (current) drug therapy; Z85.3 Personal history of malignant neoplasm of breast; Z88.0 Allergy status to penicillin; Z88.2 Allergy status to sulfonamides
CPT/HCPCS: 00790; 36415; 36430; 36556; 36600; 51702; 64488; 71045; 74018; 74019; 74176; 74250; 76942; 80048; 80053; 80061; 81001; 82247; 82465; 82803; 83605; 83615; 83735; 83880; 84100; 84134; 84478; 84484; 84550; 85025; 85610; 85651; 86850; 86900; 86901; 86920; 87040; 87070; 87502; 88304; 88307; 93005; 93010; 94640; 94799; 96361; 96374; 97162; 99285-25; 99406; J0131; J0330; J0610; J0694; J0735; J1100; J1170; J1200; J1885; J1940; J2060; J2185; J2270; J2405; J2550; J2704; J2795; J2997; J3475; J3480; J7030; J7060; J7120; P9016